=== PATIENT | female | born 1970 | race Caucasian/White ===

== ENCOUNTER 2023-06-13 14:59 | Outpatient (OUT) | payer BC, SELFPAY ==
--- NOTE | 2023-06-13 15:01 | MM_ITS ---
Patient: MARIBEL FLORES Exam Date: 06/13/2023 : 1970 Gender:F Ordering : MARIANA Crystal Rosas [facility] Admission #: [id number] Family : Order #: [id number] CLICK HERE TO VIEW EXAM RADIOLOGY REPORT PROCEDURE: MM TOMOSYNTHESIS SCREENING BI COMPARISON: MG MAMM SCREEN 3D AZRA CAD, 03/30/2021. MG MAMM SCREEN AZRA W CAD, 07/29/2019. INDICATIONS: Screening mammogram Z12.31 Calculator Name NCI Breast Cancer Risk Assessment Tool 5 Year Breast Cancer Risk 0.90% Lifetime Breast Cancer Risk 7.90% Personal Breast Cancer No Personal Ovarian Cancer No Treatments None Family Cancers Grandmother-paternal with uterine cancer at age ~82; Aunt-paternal with brain cancer at age ~30. LOCATION: [facility] BREAST COMPOSITION: Heterogeneously dense,which may obscure small masses. FINDINGS: DIAGNOSTIC CATEGORY 1--NEGATIVE. NO CHANGE FROM COMPARISON ASSESSMENT. Scattered benign-appearing calcifications are present. RIGHT BREAST: No significant suspicious finding. LEFT BREAST: No significant suspicious finding. RECOMMENDATIONS: ROUTINE MAMMOGRAM AND CLINICAL EVALUATION IN 12 MONTHS. PLEASE NOTE: A NORMAL MAMMOGRAM DOES NOT EXCLUDE THE POSSIBILITY OF BREAST CANCER. A CLINICALLY SUSPICIOUS PALPABLE LUMP SHOULD BE BIOPSIED. Dictated by: Adam Lux MD on 06/14/2023 at 09:28 Approved by: Adam Lux MD on 06/14/2023 at 09:29
== END 2023-06-13 15:00 | disposition home or self-care (01) ==
LOC: MAMMO 14:59
PROVIDERS: PCP Nurse Practitioner; Visit Provider Nurse Practitioner
DX: Z00.00 Encounter for general adult medical examination without abnormal findings (principal); Z12.31 Encounter for screening mammogram for malignant neoplasm of breast; Z80.8 Family history of malignant neoplasm of other organs or systems
CPT/HCPCS: 36415; 77063; 77067; 80053; 80061; 83036; 84443; 85025

== ENCOUNTER 2023-06-13 15:28 | Outpatient (OUT) | payer BC, SELFPAY ==
[2023-06-13 15:55] LABS: Basophils Percent Auto 0.4 % (0.2-2.0); Eosinophils Absolute Auto 0.1 10^3/uL (0.0-0.7); Eosinophils Percent Auto 2.5 % (0.9-7.0); Hematocrit 46.4 % (36.0-48.0); Hemoglobin 15.8 g/dL (12.0-16.0); Immature Granulocytes Abs Auto 0.01 10^3/uL (0.00-0.03); Immature Granulocytes Pct Auto 0.2 % (0.0-0.5); Lymphocytes Absolute Auto 1.6 10^3/uL (1.2-3.8); Lymphocytes Percent Auto 30.8 % (20.5-60.0); Mean Corpuscular HGB Conc 34.1 g/dL (29.9-35.2); Mean Corpuscular Hemoglobin 30.2 pg (26.7-34.0); Mean Corpuscular Volume 88.7 fL (81.0-99.0); Mean Platelet Volume 9.5 fL (9.5-13.5); Monocytes Absolute Auto 0.4 10^3/uL (0.3-0.8); Monocytes Percent Auto 8.1 % (1.7-12.0); Platelet Count 275 10^3/uL (150-450); Red Blood Count 5.23 10^6/uL (4.20-5.40); Red Cell Distribution Width 12.8 % (11.0-15.0); White Blood Count 5.2 10^3/uL (4.0-11.0)
[2023-06-13 16:22] LABS: Estimated Average Glucose 97 mg/dL
[2023-06-13 16:39] LABS: Alanine Aminotransferase 14 U/L (14-59); Albumin Globulin Ratio 1.3; Albumin Level 4.4 g/dL (3.4-5.0); Alkaline Phosphatase 71 U/L (46-116); Anion Gap 13.3; Aspartate Amino Transferase 10 U/L (15-37); BUN Creatinine Ratio 8.3; Bilirubin Total 0.8 mg/dL (0.2-1.0); Calcium 8.8 mg/dL (8.5-10.1); Carbon Dioxide 23.6 mmol/L (21.0-32.0); Chloride 105 mmol/L (98-107); Chol HDL Ratio 3.6; Cholesterol 207 mg/dL (<=200); Estimated GFR (African America >60 (>=60); Estimated GFR (Non-African Ame >60 (>=60); Globulin 3.4 g/dL; Glucose 105 mg/dL (74-106); HDL Cholesterol 57 mg/dL (40-60); Potassium 3.9 mmol/L (3.5-5.1); Sodium 138 mmol/L (136-145); Thyroid Stimulating Hormone 3.162 uIU/mL (0.358-3.740); Total Protein 7.8 g/dL (6.4-8.2); Triglycerides 63 mg/dL (<=150); VLDL CHOLESTEROL 12.6 mg/dL
== END 2023-06-13 15:29 | disposition home or self-care (01) ==
PROVIDERS: PCP Nurse Practitioner; Visit Provider Nurse Practitioner
DX: Z00.00 Encounter for general adult medical examination without abnormal findings (principal)
CPT/HCPCS: 36415; 80053; 80061; 83036; 84443; 85025

== ENCOUNTER 2023-08-08 07:46 | Outpatient (OUT) | payer BC, SELFPAY ==
[2023-08-08] MEDS: VARICELLA-ZOSTER GE VAC,2 OF 2 0.5 ML VIAL IM (15:40)
== END 2023-08-08 07:47 | disposition home or self-care (01) ==
LOC: VACCLI 07:46
PROVIDERS: PCP Nurse Practitioner; Visit Provider Nurse Practitioner
DX: Z23 Encounter for immunization (principal)
CPT/HCPCS: 90471; 90750

== ENCOUNTER 2023-12-26 15:45 | Outpatient (OUT) | payer BC, SELFPAY ==
--- NOTE | 2023-12-26 16:14 | XR_ITS ---
The [address] [address] Patient Name: MARIBEL FLORES MRN: [id number] date: 1970 Sex: F Assigned Patient Location: LAB Current Patient Location: Accession/Order Number: [id number] Exam Date: 12/26/2023 16:30 Report Date: 12/27/2023 06:42 At the request of: JORDON PÉREZ Procedure: XR foot RT min 3V PROCEDURE: XR foot RT min 3V HISTORY: pain and swelling of toe of right foot M79.674, M79.89 ; gout? COMPARISON: None. FINDINGS: BONES:No fracture, acute abnormality, or significant arthropathy. Small calcaneal plantar spur. SOFT TISSUES:No visible soft tissue swelling. EFFUSION:None visible. OTHER: Negative. XR/XR foot RT min 3V IMPRESSION: 1. No significant degenerative joint disease with specific attention to the first metatarsophalangeal joint. No evidence of early arthritic changes of gout. Electronically authenticated by: MANJIT ROJO Date: 12/27/2023 06:42
[2023-12-26 16:29] LABS: Uric Acid 2.7 mg/dL (2.6-6.0)
[2023-12-26 16:30] LABS: C Reactive Protein <0.50 mg/dL (<=0.50)
[2023-12-26 17:02] LABS: Erythrocyte Sedimentation Rate 30 mm/hr (<=30)
[2023-12-28 06:08] LABS: Antistreptolysin O Ab 75.9 IU/mL (0.0-200.0)
[2023-12-31 11:13] LABS: Antinuclear Antibodies, IFA Positive (.)
== END 2023-12-26 15:46 | disposition home or self-care (01) ==
LOC: LAB 15:50
PROVIDERS: PCP Nurse Practitioner; Visit Provider Nurse Practitioner
DX: M79.674 Pain in right toe(s) (principal); M79.89 Other specified soft tissue disorders
CPT/HCPCS: 36415; 73630; 84550; 85652; 86038; 86060; 86140; G0145

== ENCOUNTER 2023-12-26 15:53 | Outpatient (OUT) | payer BC, SELFPAY ==
[2023-12-26 16:28] LABS: Basophils Percent Auto 0.5 % (0.2-2.0); Eosinophils Absolute Auto 0.2 10^3/uL (0.0-0.7); Eosinophils Percent Auto 3.4 % (0.9-7.0); Hematocrit 43.8 % (36.0-48.0); Hemoglobin 14.2 g/dL (12.0-16.0); Immature Granulocytes Abs Auto 0.01 10^3/uL (0.00-0.03); Immature Granulocytes Pct Auto 0.2 % (0.0-0.5); Lymphocytes Absolute Auto 1.7 10^3/uL (1.2-3.8); Lymphocytes Percent Auto 30.1 % (20.5-60.0); Mean Corpuscular HGB Conc 32.4 g/dL (29.9-35.2); Mean Corpuscular Hemoglobin 29.8 pg (26.7-34.0); Mean Platelet Volume 9.9 fL (9.5-13.5); Monocytes Absolute Auto 0.4 10^3/uL (0.3-0.8); Monocytes Percent Auto 7.2 % (1.7-12.0); Neutrophils Absolute Auto 3.3 10^3/uL (1.4-6.5); Neutrophils Percent Auto 58.6 % (43.0-75.0); Platelet Count 287 10^3/uL (150-450); Red Blood Count 4.76 10^6/uL (4.20-5.40); Red Cell Distribution Width 13.5 % (11.0-15.0); White Blood Count 5.6 10^3/uL (4.0-11.0)
[2023-12-26 16:30] LABS: Estimated Average Glucose 100 mg/dL; Glycohemoglobin A1C 5.1 % (4.5-6.2)
[2023-12-26 16:41] LABS: HCG Quantitative <1 mIU/mL
[2023-12-28 04:07] LABS: Prolactin 16.8 ng/mL (3.6-25.2)
== END 2023-12-26 15:54 | disposition home or self-care (01) ==
LOC: LAB 15:55
PROVIDERS: PCP Nurse Practitioner; Visit Provider Physician Assistant
DX: M79.674 Pain in right toe(s) (principal); M79.89 Other specified soft tissue disorders; N91.2 Amenorrhea, unspecified; Z01.419 Encounter for gynecological examination (general) (routine) without abnormal findings
CPT/HCPCS: 36415; 73630; 83036; 84146; 84443; 84550; 84702; 85025; 85652; 86038; 86060; 86140; 87624; G0145

== ENCOUNTER 2023-12-26 21:35 | Outpatient (REF) | payer BC, SELFPAY | END 2023-12-26 21:36 | disposition home or self-care (01) | LOC: LAB 21:35 | PROVIDERS: PCP Nurse Practitioner; Visit Provider Physician Assistant | DX: Z01.419 Encounter for gynecological examination (general) (routine) without abnormal findings (principal) | CPT/HCPCS: 87624; G0145 ==

== ENCOUNTER 2024-01-30 14:37 | Outpatient (OUT) | payer BC, SELFPAY ==
--- NOTE | 2024-01-30 | XR_ITS ---
The [address] [address] Patient Name: MARIBEL FLORES MRN: [id number] date: 1970 Sex: F Assigned Patient Location: LAB Current Patient Location: Accession/Order Number: [id number] Exam Date: 01/30/2024 15:35 Report Date: 01/31/2024 07:51 At the request of: HAMLET RICH Procedure: XR shoulder RT min 2V PROCEDURE: XR shoulder RT min 2V HISTORY: Shoulder Pain COMPARISON: None. FINDINGS: BONES:No fracture, acute abnormality, or significant arthropathy. SOFT TISSUES:No visible soft tissue swelling. EFFUSION:None visible. OTHER: Negative. XR/XR shoulder RT min 2V IMPRESSION: 1. No acute bone abnormality or significant degenerative changes. Electronically authenticated by: MANJIT ROJO Date: 01/31/2024 07:51
--- NOTE | 2024-01-30 15:31 | XR_ITS ---
The [address] [address] Patient Name: MARIBEL FLORES MRN: [id number] date: 1970 Sex: F Assigned Patient Location: LAB Current Patient Location: LAB Accession/Order Number: [id number] Exam Date: 01/30/2024 15:35 Report Date: 01/31/2024 07:57 At the request of: HAMLET RICH Procedure: XR hand AZRA min 3v EXAMINATION: XR hand AZRA min 3v HISTORY: Hand Pain COMPARISON: No relevant comparison available. FINDINGS: RIGHT FINDINGS: BONES: Minimal degenerative joint disease; no bone erosion, cortical destruction, or periosteal reaction. No fracture, dislocation, or bone lesion. SOFT TISSUES: No visible soft tissue swelling. OTHER: Negative. LEFT FINDINGS: BONES: Minimal degenerative joint disease; no bone erosion, cortical destruction, periosteal reaction. No fracture, dislocation, or bone lesion. SOFT TISSUES: No visible soft tissue swelling. OTHER: Negative. XR/XR hand AZRA min 3v IMPRESSION: RIGHT CONCLUSION: No findings to suggest rheumatoid arthritis. Minimal degenerative changes. LEFT CONCLUSION: No findings to suggest rheumatoid arthritis. Minimal degenerative changes. Electronically authenticated by: MANJIT ROJO Date: 01/31/2024 07:57
[2024-01-30 15:37] LABS: Bilirubin Urine NEGATIVE (NEGATIVE); Blood Urine NEGATIVE (NEGATIVE); Clarity Urine CLEAR (CLEAR); Color Urine YELLOW (YELLOW); Glucose Urine UA NEGATIVE (NEGATIVE); Ketones Urine NEGATIVE (NEGATIVE); Leukocyte Esterase Urine NEGATIVE (NEGATIVE); Nitrite Urine NEGATIVE (NEGATIVE); Protein Urine NEGATIVE (NEG/TRACE); Specific Gravity Urine 1.015 (1.005-1.025); Urobilinogen Urine 0.2 EU/dL (0.2-1.0); pH Urine 7.5 (5.0-9.0)
[2024-01-30 15:56] LABS: Basophils Percent Auto 0.4 % (0.2-2.0); Eosinophils Absolute Auto 0.1 10^3/uL (0.0-0.7); Eosinophils Percent Auto 2.2 % (0.9-7.0); Hematocrit 44.5 % (36.0-48.0); Hemoglobin 14.5 g/dL (12.0-16.0); Immature Granulocytes Abs Auto 0.01 10^3/uL (0.00-0.03); Immature Granulocytes Pct Auto 0.2 % (0.0-0.5); Lymphocytes Absolute Auto 1.8 10^3/uL (1.2-3.8); Lymphocytes Percent Auto 33.3 % (20.5-60.0); Mean Corpuscular HGB Conc 32.6 g/dL (29.9-35.2); Mean Corpuscular Hemoglobin 29.7 pg (26.7-34.0); Mean Corpuscular Volume 91.2 fL (81.0-99.0); Mean Platelet Volume 9.9 fL (9.5-13.5); Monocytes Absolute Auto 0.3 10^3/uL (0.3-0.8); Monocytes Percent Auto 5.8 % (1.7-12.0); Neutrophils Absolute Auto 3.2 10^3/uL (1.4-6.5); Neutrophils Percent Auto 58.1 % (43.0-75.0); Platelet Count 262 10^3/uL (150-450); Red Blood Count 4.88 10^6/uL (4.20-5.40); Red Cell Distribution Width 13.2 % (11.0-15.0); White Blood Count 5.5 10^3/uL (4.0-11.0)
[2024-01-30 16:01] LABS: Erythrocyte Sedimentation Rate 25 mm/hr (<=30)
[2024-01-30 16:04] LABS: Amorphous Sediment Urine RARE; Bacteria Urine NONE SEEN #/HPF (NONE SEEN); Cast Seen? NONE SEEN #/LPF (NONE SEEN); Crystals Seen? Seen #/HPF (None Seen); Mucus Urine NONE SEEN (NONE SEEN); RBC Urine 0-2 #/HPF (0-2); Squamous Epithelial Cell Urine FEW #/LPF (NONE/RARE); WBC Urine 0-2 #/HPF (NONE SEEN)
[2024-01-30 16:24] LABS: Estimated GFR (African America >60 (>=60); Estimated GFR (Non-African Ame >60 (>=60)
[2024-01-30 16:29] LABS: C Reactive Protein <0.50 mg/dL (<=0.50)
[2024-01-31 05:08] LABS: Complement C3, Serum 131 mg/dL (82-167); Complement C4, Serum 28 mg/dL (12-38)
[2024-01-31 06:09] LABS: Rheumatoid Factor (RF) <10.0 IU/mL (<14.0)
[2024-01-31 12:11] LABS: Anti-CCP Ab, IgG/IgA 4 units (0-19)
[2024-01-31 14:10] LABS: Anti-dsDNA Antibodies 1 IU/mL (0-9); Antiscleroderma-70 Antibodies <0.2 AI (0.0-0.9); Complement, Total (CH50) >60 U/mL (>41); PTH, Intact 23 pg/mL (15-65); Sjogren's Anti-SS-A <0.2 AI (0.0-0.9); Sjogren's Anti-SS-B <0.2 AI (0.0-0.9)
[2024-02-03 09:08] LABS: Antinuclear Antibodies, IFA Positive (.)
== END 2024-01-30 14:38 | disposition home or self-care (01) ==
LOC: LAB 14:40
PROVIDERS: PCP Nurse Practitioner; Visit Provider Internal Medicine Rheumatology
DX: M25.50 Pain in unspecified joint (principal); R76.0 Raised antibody titer; M89.9 Disorder of bone, unspecified
CPT/HCPCS: 36415; 73030; 73130; 81001; 82306; 82565; 83970; 85025; 85652; 86038; 86140; 86160; 86162; 86200; 86225; 86235; 86431

== ENCOUNTER 2024-02-28 12:54 | Outpatient (OUT) | payer BC, SELFPAY ==
--- NOTE | 2024-02-28 12:58 | MR_ITS ---
[address] [address] Patient Name: MARIBEL FLORES MRN: [id number] date: 1970 Sex: F Assigned Patient Location: MRI Current Patient Location: Accession/Order Number: [id number] Exam Date: 02/28/2024 13:35 Report Date: 03/01/2024 04:35 At the request of: HAMLET RICH Procedure: MR shoulder RT wo con EXAMINATION: MR shoulder RT wo con HISTORY: Right Shoulder Pain M25.511 COMPARISON: No relevant comparison available. TECHNIQUE: A variety of imaging planes and parameters were utilized for visualization of suspected pathology. Imaging was performed without or with contrast as indicated by examination type. FINDINGS: ROTATOR CUFF REGION CUFF TENDONS: Complete tear of the supraspinatus tendon with approximately 3 cm retraction. CUFF MUSCLES: Normal appearing muscles. DELTOID: Normal. No significant atrophy or tear. LONG BICEPS TENDON: Normal. No abnormal signal, attrition, or tear. LABRUM/BICEPS ANCHOR SUPERIOR: No visible labral tear or biceps anchor pathology. ANTERIOR/INFERIOR: Anterior labrum is suspicious for small tear. POSTERIOR: No posterior labrum abnormality. CAPSULE Normal. No visible capsular laxity or thickening. AC JOINT REGION AC JOINT: Moderate osteoarthropathy with moderate narrowing of the underlying coracoacromial arch. AC LIGAMENTS: Normal acromioclavicular ligament. CC LIGAMENTS: Normal coracoclavicular ligaments. ACROMION: Mild lateral downsloping. SUBACROMIAL BURSA: Moderate effusion. HYALINE CARTILAGE: Normal. No visible cartilage narrowing or focal defect. OTHER BONES: Normal proximal humerus, glenoid, and coracoid. OTHER OBSERVATIONS: Negative. No other significant findings or glenohumeral effusion. MR/MR shoulder RT wo con IMPRESSION: 1. Complete tear and approximately 3 cm retraction of supraspinatus tendon. 2. Moderate degenerative changes acromioclavicular joint and mild lateral downsloping of acromion process. 3. Anterior labrum is suspicious for a small tear. Electronically authenticated by: MANJIT ROJO Date: 03/01/2024 04:35
== END 2024-02-28 12:55 | disposition home or self-care (01) ==
LOC: MRI 12:54
PROVIDERS: PCP Nurse Practitioner; Visit Provider Internal Medicine Rheumatology
DX: M25.511 Pain in right shoulder (principal); M75.121 Complete rotator cuff tear or rupture of right shoulder, not specified as traumatic
CPT/HCPCS: 73221

== ENCOUNTER 2024-03-11 14:28 | Outpatient (OUT) | payer BC, SELFPAY ==
--- NOTE | 2024-03-11 14:37 | ECG_ITS ---
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
--- OUTSIDE RECORDS SUMMARY | 2024-03-11 14:42 | XMS_ITS | CCD ---
Author Organization [facility] Care Team Providers Care Assistant Sales Manager Name Role Phone AICHHOLZ, PIPELINE SYSTEMS OPERATOR CRYSTAL Admitting Unavailable AICHHOLZ, PIPELINE SYSTEMS OPERATOR CRYSTAL Attending Unavailable AICHHOLZ, PIPELINE SYSTEMS OPERATOR CRYSTAL Consulting Unavailable AICHHOLZ, PIPELINE SYSTEMS OPERATOR CRYSTAL Primary Care Unavailable AICHHOLZ, PIPELINE SYSTEMS OPERATOR CRYSTAL Primary Care Unavailable AICHHOLZ, PIPELINE SYSTEMS OPERATOR CRYSTAL Admitting Unavailable AICHHOLZ, PIPELINE SYSTEMS OPERATOR CRYSTAL Attending Unavailable AICHHOLZ, PIPELINE SYSTEMS OPERATOR CRYSTAL Consulting Unavailable NILL, DR GE Attending Unavailable NILL, DR GE Consulting Unavailable NILL, DR GE Admitting Unavailable AICHHOLZ, PIPELINE SYSTEMS OPERATOR CRYSTAL Primary Care Unavailable RAZIA MENDIETA Consulting Unavailable NILL, DR GE Admitting Unavailable NILL, DR GE Attending Unavailable AICHHOLZ, PIPELINE SYSTEMS OPERATOR CRYSTAL Primary Care Unavailable LEONARDO DURÁN Attending Unavailable LEONARDO DURÁN Consulting Unavailable LEONARDO DURÁN Admitting Unavailable AICHHOLZ, PIPELINE SYSTEMS OPERATOR CRYSTAL Primary Care Unavailable Everette Mullen MD Primary Care Provider [place] COURT [place] JUDGE, Crystal Unavailable AICHHOLZ, CRYSTAL Attending Unavailable AICHHOLZ, CRYSTAL Attending Unavailable EKATERINA DURÁN Attending Unavailable AICHHOLZ, CRYSTAL Attending Unavailable Allergies Allergy Classification Reported Allergen(s) Allergy Type Date of Onset Reaction(s) Facility (2 sources) Adhesive agent Drug allergy (disorder) 06-08-2013 [facility] (1 source) Glycerin Drug Allergy 06-14-2013 [facility] (1 source) Leucine Drug Allergy [facility] (1 source) Aquasol A Drug allergy (disorder) [facility] Medications Current Medications Medication Drug Class(es) Dates Sig (Normalized) Sig (Original) aspirin 81 mg delayed release oral tablet (5 sources) Platelet Aggregation Inhibitor, Nonsteroidal Anti-inflammatory Drug take 1 tablet by mouth in the morning aspirin 81 MG EC tablet Take 81 mg by mouth in the morning. 0 Active cephalexin 500 mg oral capsule (4 sources) Cephalosporin Antibacterial Start: 12-23-19 End: 01-02-20 take 1 capsule by mouth in the morning cephalexin (Keflex) 500 MG capsule Indications: Cellulitis of toe of right foot Take 1 capsule (500 mg) by mouth in the morning and 1 capsule (500 mg) before bedtime. Do all this for 10 days. 20 capsule 0 12/23/2023 01/02/2024 Active cholecalciferol 0.025 mg oral capsule (5 sources) Vitamin D take 1 capsule by mouth in the morning cholecalciferol (Vitamin D-3) 25 MCG (1000 UT) capsule Take 1,000 Units by mouth in the morning. 0 Active DULoxetine 30 mg delayed release oral capsule (5 sources) Serotonin and Norepinephrine Reuptake Inhibitor Start: 11-27-19 End: 02-25-20 take 1 capsule by mouth in the morning DULoxetine (Cymbalta) [address] capsule Indications: Chronic migraine without aura without status migrainosus, not intractable (CMS/HCC) Take 1 capsule (30 mg) by mouth in the morning. Do not crush or chew.. 90 capsule 1 11/27/2023 02/25/2024 Active 1 ml galcanezumab-gnlm 120 mg/ml auto-injector (5 sources) Start: 11-27-19 End: 02-25-20 galcanezumab (Emgality) 120 MG/ML auto-injector Indications: Migraine Inject 1 Syringe (120 mg) under the skin every 30 (thirty) days 3 mL 1 11/27/2023 02/25/2024 Active Magnesium (5 sources) take 2 tablets by mouth once daily magnesium 200 MG tablet Take 400 mg by mouth 1 (one) time each day 0 Active 1 ml medroxyPROGESTERone acetate 150 mg/ml injection (5 sources) Progestin Start: 04-02-20 End: 03-27-20 medroxyPROGESTERone (Depo-Provera) injection 150 mg meloxicam 15 mg oral tablet (5 sources) Nonsteroidal Anti-inflammatory Drug take 1 tablet by mouth in the morning meloxicam (Mobic) 15 MG tablet Take 15 mg by mouth in the morning. 0 Active SUMAtriptan 100 mg oral tablet (5 sources) Serotonin-1b and Serotonin-1d Receptor Agonist Start: 12-03-19 End: 03-02-20 24 SUMAtriptan (Imitrex) 100 MG tablet Indications: Chronic migraine without aura without status migrainosus, not intractable (CMS/HCC) Take 1 tablet (100 mg) by mouth 1 (one) time if needed for migraine Take 1 pill at the onset of migraine BRYAN, may repeat in 2 hours if needed. No more than 2 pills in 24 hours, no more than twice a week 27 tablet 1 12/03/2023 03/02/2024 Active Problems Active Problems Problem Classification Problem Date Documented Date Episodic/Chronic Digestive congenital anomalies (1 source) Other specified congenital malformations of intestine; 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: [OTH SPEC CONGEN MALFORM INTESTINE] Onset: 11-07-2021 Chronic Headache; including migraine (5 sources) Migraine without aura, not refractory ; 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: [Chronic migraine without aura, not intractable, without status migrainosus] Onset: 10-21-2023 10-21-2023 Chronic Menopausal disorders (2 sources) Disorder associated with menstruation AND/OR menopause; 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: [Menopausal and female climacteric states] 12-26-2023 Chronic Menstrual disorders (2 sources) Amenorrhea; 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: [Amenorrhea, unspecified] 12-26-2023 Chronic Osteoporosis (2 sources) Senile osteoporosis; 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: [Age-related osteoporosis without current pathological fracture] 12-26-2023 Chronic Other connective tissue disease (4 sources) Pain in toe; 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: [Pain in right toe(s)] Onset: 12-23-2023 12-23-2023 Episodic Other nutritional; endocrine; and metabolic disorders (5 sources) Body mass index 30+ - obesity; 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: [Body mass index (BMI) 33.0-33.9, adult] Onset: 11-21-2023 11-21-2023 Chronic Other screening for suspected conditions (not mental disorders or infectious disease) (6 sources) Encounter for screening for malignant neoplasm of colon; 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: [Patient encounter status] Onset: 11-01-2021 Episodic Other skin disorders (5 sources) Acne; 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: [Acne, unspecified] Onset: 10-21-2023 10-21-2023 Episodic Skin and subcutaneous tissue infections (4 sources) Cellulitis of toe of right foot; 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: [Cellulitis of right toe] Onset: 12-23-2023 12-23-2023 Episodic Unclassified (1 source) PERSONAL HISTORY OF COVID-19; 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: [PERSONAL HISTORY OF COVID-19] Onset: 11-07-2021 Unclassified (2 sources) CONTACT W/AND (SUSP) EXPOS COVID-19; 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: [CONTACT W/AND (SUSP) EXPOS COVID-19] Onset: 09-26-2021 Viral infection (1 source) COVID-19; 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: [COVID-19] Onset: 09-26-2021 Past or Other Problems Problem Classification Problem Date Documented Da te Episodic/Chronic Disorders of lipid metabolism (9 sources) Hyperlipidemia, unspecified; 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: [Hyperlipidemia] Onset: 09-14-2022 Resolved: 12-23-2023 Chronic Other aftercare (1 source) 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; 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: [MOLDER BENCH CURRENT USE OF ASPIRIN] Onset: 11-07-2021 Episodic Unclassified (1 source) CONTACT W/AND (SUSP) EXPOS COVID-19; 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: [CONTACT W/AND (SUSP) EXPOS COVID-19] Onset: 09-21-2021 Results Test Name Value Interpretation Reference Range Facility ALL C REACTIVE PROTEINon CRP [Mass/Vol] mg/L NINF - 0.50 mg/dL [facility] ALL URIC ACIDon 12-26-2023 Urate [Mass/Vol] 2.7 mg/dL 2.6 - 6.0 mg/dL [facility] No Panel Informationon 12-26 [facility] LIPID PROFILEon 09-14-2022 CHOL-HDL RATIO NORM SEE BELOW Normal [facility] Comment on above: Result Comment: 3.3 - 4.4 LOW RISK 4.4 - 7.1 AVERAGE RISK 7.1 - 11.0 MODERATE RISK >11.0 HIGH RISK Performed By: #### L IPID #### [facility] [address] [address] [address] Cami Quispe Cholesterol [Mass/Vol] 229 mg/dL Critically high <=200 [facility] Comment on above: Performed By: #### L IPID #### [facility] [address] [address] [address] Cami Quispe Cholesterol in HDL [Mass/Vol] 60 mg/dL Normal 40-60 [facility] Comment on above: Performed By: #### L IPID #### [facility] [address] [address] [address] Cami Quispe Cholesterol in LDL [Mass/Vol] 160.2 mg/dL Normal [facility] Comment on above: Performed By: #### L IPID #### [facility] [address] [address] [address] Cami Quispe Cholesterol.total/Ch olesterol in HDL [Mass ratio] 3.8 {ratio} Normal [facility] Comment on above: Performed By: #### L IPID #### [facility] [address] [place] [address] Dr. Cami Quispe HDL NORMAL > or = 60 mg/dl - LOW CARDIOVASCULAR RISK <40 mg/dl - HIGH CARDIOVASCULAR RISK Normal [facility] Comment on above: Performed By: #### L IPID #### [facility] [address] [address] [address] Cami Quispe LDL CALC NORMAL SEE BELOW Normal [facility] Comment on above: Result Comment: <100 mg/dl OPTIMAL 100 - 129 mg/dl NEAR OR ABOVE OPTIMAL 130 - 159 mg/dl BORDERLINE HIGH 160 - 189 mg/dl HIGH >190 mg/dl VERY HIGH Performed By: #### L IPID #### [facility] [address] [address] [address] Cami Quispe Triglyceride [Mass/Vol] 44 mg/dL Normal <=150 [facility] Comment on above: Performed By: #### L IPID #### [facility] [address] [place] [address] Dr. Cami Quispe VLDL CALC 8.8 mg/dL Normal [facility] Comment on above: Performed By: #### L IPID #### [facility] [address] [address] [address] Cami Quispe CBC AUTO DIFFon 04-05-2022 BASO # 0.0 103/ul Normal 0.0-0.1 [facility] Comment on above: Performed By: #### C BC #### [facility] [address] [place] [address] Dr. Cami Quispe Basophils/100 WBC (Bld) 0.6 % Normal 0.2-2.0 [facility] Comment on above: Performed By: #### C BC #### [facility] [address] [place] [address] Dr. Cami Quispe EO # 0.2 103/ul Normal 0.0-0.7 [facility] Comment on above: Performed By: #### C BC #### [facility] [address] [place] [address] Dr. Cami Quispe Eosinophils/100 WBC (Bld) 3.2 % Normal 0.9-7.0 [facility] Comment on above: Performed By: #### C BC #### [facility] [address] [place] [address] Dr. Cami Quispe Erythrocyte distribution width (RBC) [Ratio] 13.4 % Normal 11.0-15.0 [facility] Comment on above: Performed By: #### C BC #### [facility] [address] [place] [address] Dr. Cami Quispe Hematocrit (Bld) [Volume fraction] 47.9 % Normal 36.0-48.0 [facility] Comment on above: Performed By: #### C BC #### [facility] [address] [place] [address] Dr. Cami Quispe Hemoglobin (Bld) [Mass/Vol] 15.8 g/dL Normal 12.0-16.0 [facility] Comment on above: Performed By: #### C BC #### [facility] [address] [place] [address] Dr. Cami Quispe IG # 0.01 10e3/ul Normal 0.00-0.03 [facility] Comment on above: Performed By: #### C BC #### [facility] [address] [place] [address] Dr. Cami Quispe IG % 0.2 % Normal 0.0-0.5 [facility] Comment on above: Performed By: #### C BC #### [facility] [address] [place] [address] Dr. Cami Quispe LYMPH # 1.8 103/ul Normal 1.2-3.8 [facility] Comment on above: Performed By: #### C BC #### [facility] [address] [place] [address] Dr. Cami Quispe Lymphocytes/100 WBC (Bld) 29.6 % Normal 20.5-60.0 [facility] Comment on above: Performed By: #### C BC #### [facility] [address] [place] [address] Dr. Cami Quispe MANUAL DIFF REQ NO Normal [facility] Comment on above: Performed By: #### C BC #### [facility] [address] [place] [address] Dr. Cami Quispe MCH (RBC) [Entitic mass] 30.8 pg Normal 26.7-34.0 [facility] Comment on above: Performed By: #### C BC #### [facility] [address] [place] [address] Dr. Cami Quispe MCHC (RBC) [Mass/Vol] 33.0 g/dL Normal 29.9-35.2 [facility] Comment on above: Performed By: #### C BC #### [facility] [address] [place] [address] Dr. Cami Quispe MCV (RBC) [Entitic vol] 93.4 fL Normal 81.0-99.0 [facility] Comment on above: Performed By: #### C BC #### [facility] [address] [place] [address] Dr. Cami Quispe MONO # 0.5 103/ul Normal 0.3-0.8 [facility] Comment on above: Performed By: #### C BC #### [facility] [address] [place] [address] Dr. Cami Quispe Monocytes/100 WBC (Bld) 7.4 % Normal 1.7-12.0 [facility] Comment on above: Performed By: #### C BC #### [facility] [address] [address] [address] Cami Quispe NEUT # 3.7 103/ul Normal 1.4-6.5 [facility] Comment on above: Performed By: #### C BC #### [facility] [address] [address] [address] Cami Quispe Neutrophils/100 WBC (Bld) 59.0 % Normal 43.0-75.0 [facility] Comment on above: Performed By: #### C BC #### [facility] [address] [address] [address] Cami Quispe Platelet mean volume (Bld) [Entitic vol] 9.6 fL Normal 9.5-13.5 [facility] Comment on above: Performed By: #### C BC #### [facility] [address] [place] [address] Dr. Cami Quispe PLT 294 103/ul Normal 150-450 [facility] Comment on above: Performed By: #### C BC #### [facility] [address] [address] [address] Cami Quispe RBC 5.13 106/ul Normal 4.20-5.40 [facility] Comment on above: Performed By: #### C BC #### [facility] [address] [place] [address] Dr. Cami Quispe WBC 6.2 103/ul Normal 4.0-11.0 [facility] Comment on above: Performed By: #### C BC #### [facility] [address] [place] [address] Dr. Cami Quispe GLYCOHEMOGLOBIN A1Con 2021 ADA RECOMMENDATION SEE BELOW Normal [facility] Comment on above: Result Comment: ADA RECOMMENDED LIMIT 4.0 - 6.0 ADA THERAPEUTIC TARGET < 7.0 ACTION SUGGESTED > 7.0 Performed By: #### A 1C #### [facility] [address] [place] [address] Dr. Cami Quispe Glucose [Mass/Vol] 91 mg/dL Normal [facility] Comment on above: Performed By: #### A 1C #### [facility] [address] [address] [address] Cami Quispe HbA1c (Bld) [Mass fraction] 4.8 % Normal 4.5-6.2 [facility] Comment on above: Performed By: #### A 1C #### [facility] [address] [address] [address] Cami Quispe LIPID PROFILEon 04-05-2022 CHOL-HDL RATIO NORM SEE BELOW Normal [facility] Comment on above: Result Comment: 3.3 - 4.4 LOW RISK 4.4 - 7.1 AVERAGE RISK 7.1 - 11.0 MODERATE RISK >11.0 HIGH RISK Performed By: #### L IPID, CMP, TSH #### [facility] [address] [address] [address] Cami Quispe Cholesterol [Mass/Vol] 255 mg/dL Critically high <=200 [facility] Comment on above: Performed By: #### L IPID, CMP, TSH #### [facility] [address] [address] [address] Cami Quispe Cholesterol in HDL [Mass/Vol] 68 mg/dL Critically high 40-60 [facility] Comment on above: Performed By: #### L IPID, CMP, TSH #### [facility] [address] [address] [address] Cami Quispe Cholesterol in LDL [Mass/Vol] 176.8 mg/dL Normal [facility] Comment on above: Performed By: #### L IPID, CMP, TSH #### [facility] [address] [address] [address] Cami Quispe Cholesterol.total/Ch olesterol in HDL [Mass ratio] 3.8 {ratio} Normal [facility] Comment on above: Performed By: #### L IPID, CMP, TSH #### [facility] [address] [address] [address] Cami Quispe HDL NORMAL > or = 60 mg/dl - LOW CARDIOVASCULAR RISK <40 mg/dl - HIGH CARDIOVASCULAR RISK Normal [facility] Comment on above: Performed By: #### L IPID, CMP, TSH #### [facility] [address] [address] [address] Cami Quispe LDL CALC NORMAL SEE BELOW Normal [facility] Comment on above: Result Comment: <100 mg/dl OPTIMAL 100 - 129 mg/dl NEAR OR ABOVE OPTIMAL 130 - 159 mg/dl BORDERLINE HIGH 160 - 189 mg/dl HIGH >190 mg/dl VERY HIGH Performed By: #### L IPID, CMP, TSH #### [facility] [address] [address] [address] Cami Quispe Triglyceride [Mass/Vol] 51 mg/dL Normal <=150 [facility] Comment on above: Performed By: #### L IPID, CMP, TSH #### [facility] [address] [address] [address] Cami Quispe VLDL CALC 10.2 mg/dL Normal [facility] Comment on above: Performed By: #### L IPID, CMP, TSH #### [facility] [address] [address] [address] Cami Quispe PROF 14(COMP METB)on 022 Albumin [Mass/Vol] 4.3 g/dL Normal 3.4-5.0 [facility] Comment on above: Performed By: #### L IPID, CMP, TSH #### [facility] [address] [address] [address] Cami Quispe Albumin/Globulin [Mass ratio] 1.2 {ratio} Normal [facility] Comment on above: Performed By: #### L IPID, CMP, TSH #### [facility] [address] [address] [address] Cami Quispe ALP [Catalytic activity/Vol] 74 U/L Normal 46-116 [facility] Comment on above: Performed By: #### L IPID, CMP, TSH #### [facility] [address] [address] [address] Cami Quispe ALT [Catalytic activity/Vol] 28 U/L Normal 14-59 [facility] Comment on above: Performed By: #### L IPID, CMP, TSH #### [facility] [address] [address] [address] Cami Quispe Anion gap [Moles/Vol] 11.8 mmol/L Normal [facility] Comment on above: Performed By: #### L IPID, CMP, TSH #### [facility] [address] [address] [address] Cami Quispe AST [Catalytic activity/Vol] 16 U/L Normal 15-37 [facility] Comment on above: Performed By: #### L IPID, CMP, TSH #### [facility] [address] [address] [address] Cami Quispe Bilirubin [Mass/Vol] 1.0 mg/dL Normal 0.2-1.0 [facility] Comment on above: Performed By: #### L IPID, CMP, TSH #### [facility] [address] [address] [address] Cami Quispe Calcium [Mass/Vol] 9.2 mg/dL Normal 8.5-10.1 [facility] Comment on above: Performed By: #### L IPID, CMP, TSH #### [facility] [address] [address] [address] Cami Quispe Chloride [Moles/Vol] 102 mmol/L Normal 98-107 [facility] Comment on above: Performed By: #### L IPID, CMP, TSH #### [facility] [address] [address] [address] Cami Quispe CO2 [Moles/Vol] 26.4 mmol/L Normal 21.0-32.0 [facility] Comment on above: Performed By: #### L IPID, CMP, TSH #### [facility] [address] [address] [address] Cami Quispe Creatinine [Mass/Vol] 0.77 mg/dL Normal 0.55-1.02 [facility] Comment on above: Performed By: #### L IPID, CMP, TSH #### [facility] [address] [address] [address] Cami Quispe EGFR-AF TRISTANIAN >60 Normal >=60 [facility] Comment on above: Performed By: #### L IPID, CMP, TSH #### [facility] [address] [address] [address] Cami Quispe EGFR-NON AF TRISTANIAN >60 Normal >=60 [facility] Comment on above: Performed By: #### L IPID, CMP, TSH #### [facility] [address] [address] [address] Cami Quispe Globulin (S) [Mass/Vol] 3.7 g/dL Normal [facility] Comment on above: Performed By: #### L IPID, CMP, TSH #### [facility] [address] [address] [address] Cami Quispe Glucose [Mass/Vol] 92 mg/dL Normal 74-106 [facility] Comment on above: Performed By: #### L IPID, CMP, TSH #### [facility] [address] [place] [address] Dr. Cami Quispe Potassium [Moles/Vol] 4.2 mmol/L Normal 3.5-5.1 [facility] Comment on above: Performed By: #### L IPID, CMP, TSH #### [facility] [address] [place] [address] Dr. Cami Quispe Protein [Mass/Vol] 8.0 g/dL Normal 6.4-8.2 [facility] Comment on above: Performed By: #### L IPID, CMP, TSH #### [facility] [address] [address] [address] Cami Quispe Sodium [Moles/Vol] 136 mmol/L Normal 136-145 [facility] Comment on above: Performed By: #### L IPID, CMP, TSH #### [facility] [address] [place] [address] Dr. Cami Quispe Urea nitrogen [Mass/Vol] 14.0 mg/dL Normal 7.0-18.0 [facility] Comment on above: Performed By: #### L IPID, CMP, TSH #### [facility] [address] [place] [address] Dr. Cami Quispe Urea nitrogen/Creatinine [Mass ratio] 18.2 mg/mg Normal [facility] Comment on above: Performed By: #### L IPID, CMP, TSH #### [facility] [address] [address] [address] Cami Quispe TSHon 04-05-2022 TSH 2.255 uIU/mL Normal 0.358-3.740 [facility] Comment on above: Performed By: #### L IPID, CMP, TSH #### [facility] [address] [address] [address] Cami Quispe TSH RANGE SEE BELOW Normal [facility] Comment on above: Result Comment: <0.3 4 UIU/ml HYPERTHYROID 0.34-5.60 UIU/ml EUTHYROID >5.60 UIU/ml HYPOTHYROID Performed By: #### L IPID, CMP, TSH #### [facility] [address] [address] [address] Cami Quispe Outside Colonoscopyon 2020 Outside Colonoscopy [id number] Normal [facility] Reminderson 11-02-2021 Reminders -- From: Cindi Figueroa LPN To: GSN - Clinical; Sent: 11/02/2021 14:42:12 EST Show up: 10/02/2031 08:00:00 EST Subject: colonoscopy recall Due Date/Time: 11/01/2031 08:00:00 EST Reminder/Recall Patient is due for screening colonoscopy 11/01/2031. Normal [facility] PREG HCG QUALon 11-01-2021 , QUAL Negative Normal NEGATIVE [facility] Comment on above: Performed By: #### P REG #### [facility] [address] [place] [address] Dr. Cami Quispe [facility] SARS-CoV-2 (COVID-19) RNA LOAN+probe Ql (Unsp spec) Detected Critically abnormal NOT DETECTED [facility] Comment on above: Result Comment: This test is not yet approved or cleared by the [place] FDA. When there are no FDA-approved or cleared tests available, and other criteria are met, FDA can make tests available under an emergency access mechanism called an Emergency Use Authorization (EUA). The EUA for this test is supported by the Hospital Nursing Assistant of Health and Human Service's declaration that circumstances exist to justify the emergency use of in vitro diagnostics for the detection and/or diagnosis of the virus that causes COVID-19. This EUA will remain in effect for the duration of the COVID-19 declaration justifying emergency of IVDs, unless it is terminated or revoked by the FDA (after which the test may no longer be used). Performed By: #### C [facility] #### [facility] [id number] Cami Quispe Provider Letter [facility] Provider Letter [facility] September 19, 2021 CRYSTAL ROSAS, [address] [place] [address] Re: JOAQUINA GARCIA Date of : 1970 Thank you for your referral of Joaquina Garcia who was seen on consultation for screening colonoscopy. I have enclosed my consultation note for your review. I will be happy to follow Joaqiuna. Sincerely, Joo Gonzalez MD General Surgery [facility] Consent for Procedure/Surger yon 09-11-2021 Consent for Procedure/Surgery [id number]:127 Normal [facility] Physician Referralon 021 Physician Referral [id number]:127 Normal [facility] Vital Signs Date Time Vital Sign Value Performing Clinician Juliane thrasher 12-26-2023 15:20-0500 Body mass index (BMI) [Ratio] 33.15 kg/m2 Ekaterina PATTERSON Work Phone: [facility] 12-26-2023 15:20-0500 Body weight 98.88 kg Ekaterina PATTERSON Work Phone: [facility] 12-26-2023 15:20-0500 Diastolic blood pressure 74 mm[Hg] Ekaterina PATTERSON Work Phone: [facility] 12-26-2023 15:20-0500 Systolic blood pressure 122 mm[Hg] Ekaterina PATTERSON Work Phone: [facility] Encounters Encounter Date Encounter Type Care Provider Facility Start: 01-13-2024 End: 01-13-2024 ambulatory CRYSTAL AICHHOLZ Not Available Start: 12-26-2023 End: 12-26-2023 ambulatory EKATERINA DURÁN Not Available Start: 12-26-2023 End: 12-26-2023 Patient encounter procedure Ekaterina PATTERSON Work Phone: [facility] Work Phone: Start: 12-26-2023 End: 12-26-2023 Periodic preventive med est patient 40-64yrs Ekaterina PATTERSON Work Phone: [facility] Comment on above: Well woman exam with routine gynecological exam; Breast cancer screening by mammogram; Post menopausal syndrome; Age-related osteoporosis without current pathological fracture ([facility]); Amenorrhea Start: 12-26-2023 Clinisync Result Encounter Crystal Alison 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 Phone: [facility] External Department Unsolicited Start: 12-26-2023 Clinisync Result Encounter Crystal Scottyholz 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 Phone: [facility] External Department Unsolicited Start: 12-25-2023 Chart abstracting Ekaterina PATTERSON Work Phone: [facility] Start: 12-23-2023 Bamboo flowsheet Crystal Aichholz 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 Phone: [facility] Start: 12-23-2023 Bamboo flowsheet Crystal Aichholz 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 Phone: [facility] Start: 12-23-2023 End: 12-23-2023 ambulatory CRYSTAL AICHHOLZ Not Available Start: 11-21-2023 End: 11-21-2023 ambulatory CRYSTAL AICHHOLZ Not Available Start: 09-14-2022 End: 09-15-2022 ambulatory [place] Facility:[facility] Start: 04-12-2022 Encounter for genera l adult medical examination without abnormal findings MARIANA RUVALCABA YAKELINTequilaPHIL[place] [facility] Start: 04-05-2022 End: 04-06-2022 ambulatory [place]NA [place] Facility:[facility] Start: 04-05-2022 End: 04-06-2022 Encounter for general adult medical examination without abnormal findings [place]NA [place] Facility:[facility] Start: 11-01-2021 End: 11-01-[address] JOO GONZALEZ Facility:[facility] Start: 09-23-[address] JOO GONZALEZ Facilit y:[facility]1 Start: 09-21-2021 End: 09-21-2021 ambulatory LEONARDO DURÁN Facility:[facility] Procedures Date Procedure Procedure Detail Performing Clinician Start: 12-26-2023 ALL C REACTIVE PROTEIN Crystal Alison 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 Phone: Start: 12-26-2023 ALL URIC ACID Crystal Fajardo meggan 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 Phone: Start: 06-13-[address] 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 Phone: Start: 11-01-2021 Colonoscopy [address] 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 Phone: Plan of Treatment Date Care Activity Detail Author Start: 11-01-2031 Screening for malign ant neoplasm of colon [facility] Start: 08-20-2024 Screening for malign ant neoplasm of cervix [facility] Start: 06-13-2024 Screening for malign ant neoplasm of breast Mammogram [facility] Start: 01-13-2024 End: 01-13-2024 Patient encounter procedure 01/13/2024 1:00 PM EST Office Visit [facility] [address] [place] [phone] Crystal Rosas NP [address] [place] [address] [facility] Start: 01-02-2024 End: 01-02-2024 Patient encounter procedure 01/02/2024 8:50 AM EST Office Visit [facility] [address] [phone] Ekaterina Durán PA [address] [place], [place] [id number] [facility] Start: 12-26-2023 End: 12-26-2023 Patient encounter procedure 12/26/2023 3:00 PM EST Office Visit [facility] [address] [place] [phone] Ekaterina Durán PA [address] [place], [place] [id number] Well woman exam with routine gynecological exam [facility] Comment on above: Well woman exam with routine gynecological exam Start: 12-26-2023 End: 12-26-2024 DXA Skeletal system Views for bone density DEXA bone density Imaging Routine Post menopausal syndrome Age-related osteoporosis without current pathological fracture ([facility]) Expected: 12/26/2023 (Approximate), Expires: 12/26/2024 [facility] Comment on above: Expected: 12/26/2023 (Approximate), Expires: 12/26/2024 Start: 12-26-2023 End: 02-23-2025 MG Breast - bilateral Screening Bilateral screening mammogram Imaging Routine Breast cancer screening by mammogram Expected: 12/26/2023, Expires: 02/23/2025 [facility] Work Phone: Comment on above: Expected: 12/26/2023 , Expires: 02/23/2025 Start: 12-26-2023 End: 12-26-2024 US for US PELVIS-TRANSVAG IF INDICATED Imaging Routine Amenorrhea Expected: 12/26/2023 (Approximate), Expires: 12/26/2024 [facility] Comment on above: Expected: 12/26/2023 (Approximate), Expires: 12/26/2024 Start: 1992 Screening for malign ant neoplasm of cervix Pap Smear [facility] Start: 1970 Screening for malign ant neoplasm of colon [facility] CBC W Auto Different ial panel - Blood CBC and differential Lab Routine Amenorrhea Ordered: 12/26/2023 [facility] Comment on above: Ordered: 12/26/2023 hCG, quantitative, hCG, quantitative, Lab Routine Amenorrhea Ordered: 12/26/2023 [facility] Comment on above: Ordered: 12/26/2023 Hemoglobin A1c/Hemoglobin.total in Blood Hemoglobin A1c Lab Routine Amenorrhea Ordered: 12/26/2023 [facility] Comment on above: Ordered: 12/26/2023 Prolactin Prolactin Lab Ro utine Amenorrhea Ordered: 12/26/2023 [facility] Comment on above: Ordered: 12/26/2023 THIN PREP TIS PAP AN D HR HPV DNA THIN PREP TIS PAP AND HR HPV DNA Pathology and Cytology Routine Well woman exam with routine gynecological exam Ordered: 12/26/2023 [facility] Comment on above: Ordered: 12/26/2023 Thyrotropin [Units/volume] in Serum or Plasma TSH Lab Routine Amenorrhea Ordered: 12/26/2023 [facility] Comment on above: Ordered: 12/26/2023 Immunizations Immunization Date Immunization Notes [facility] influenza virus vacc ine, whole virus Crystal Rosas 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 Phone: [facility] Payers Date Payer Category Payer Unknown BCBS BCBS [id number] 2022-Present [phone] [address] [place] [address] [id number] 2022 Unknown [id number] 2019 Unknown [id number] 1970 Unknown [id number] 1970 Unknown [id number] 1970 Unknown [id number] 1970 Unknown [id number] 1970 Unknown [id number] 1970 Unknown [id number] 1970 Unknown [id number] 1970 Unknown [id number] 1970 Unknown [id number] Social History Date Type Detail Facility Start: 11-19-2023 Tobacco smoking status ILIS Never sm oked tobacco [facility] Start: 12-23-2023 End: 12-26-2023 Alcohol intake Current drinker of alcohol (finding) [facility] Start: 11-18-2023 End: 12-23-2023 [facility] of [facility] Start: 11-18-2023 End: 12-23-2023 Humiliation, Afraid, Rape, and Kick questionnaire [HARK] [facility] Within the last year , have you been afraid of your partner or ex-partner? No [facility] How often do you att end nondenominational or voodoo services? Patient refused [facility] Are you now , , , , never or living with a partner? [facility] How often to you hav e a drink containing alcohol? 2-3 time sa week [facility] How many standard dr inks containing alcohol do you have on a typical day? 1 or 2 [facility] How often do you hav e 6 or more drinks on 1 occasion? Never [facility] Do you feel stress - tense, restless, nervous, or anxious, or unable to sleep at night because your mind is troubled all the time - these days [OSQ] Only a little [facility] (I/We) worried wheth er (my/our) food would run out before (I/we) got money to buy more. Never true [facility] Start: 11-19-2023 Alcohol Comment 1-2 drinks mon thly or less [facility] Start: 1970 Sex Assigned At Not on file [facility] History of Present illness Narrative 12-26-2023 LEONARDO Garcia - 12/26/2023 3:00 PM ESTMarjackelyn Arthur MA - 12/26/2023 3:00 PM EST Note Date & Type Note Facility 12-26-2023 History of Presen t illness Narrative Reason for Appointment: Patient ID: Bev Garcia is a 53 y.o. female who presents for Well Women Visit Patient presents today for Annual Exam appointment. Current Medications: has a current medication list which includes the following prescription(s): aspirin, cephalexin, cholecalciferol, duloxetine, galcanezumab, magnesium, meloxicam, and sumatriptan, and the following Facility-Administered Medications: medroxyprogesterone. Medical History: Active Ambulatory Problems Diagnosis Date Noted Adult acne 10/21/2023 Chronic migraine without aura without status migrainosus, not intractable ([facility]) 10/21/2023 BMI 33.0-33.9,adult 11/21/2023 Pain and swelling of toe of right foot 12/23/2023 Cellulitis of toe of right foot 12/23/2023 Resolved Ambulatory Problems Diagnosis Date Noted Hyperlipidemia ([facility]) 12/23/2023 Past Medical History: Diagnosis Date Joint pain Migraine headache ([facility]) Family History Problem Relation Name Age of Onset Thyroid disease Mother Social History Tobacco Use Smoking status: Never Smokeless tobacco: Not on file Vaping Use Vaping Use: Never used Substance Use Topics Alcohol use: Yes Comment: 1-2 drinks monthly or less Drug use: Defer Past Surgical History: Procedure Laterality Date APPENDECTOMY SECTION, LOW TRANSVERSE x2 OOPHORECTOMY Right TUBAL LIGATION Allergies Allergen Reactions Wound Dressing Adhesive Other Reaction(s): Unknown Review of Systems: Review of Systems Constitutional: Negative. HENT: Negative. Eyes: Negative. Respiratory: Negative. Cardiovascular: Negative. Gastrointestinal: Negative. Musculoskeletal: Negative. Skin: Negative. Neurological: Negative. Psychiatric/Behavioral: Negative. All other systems reviewed and are negative. Hematological: Negative. Endocrine: Negative. Objective Physical Exam Constitutional: Appearance: Normal appearance. She is well-developed. Genitourinary: Vulva normal. Right Adnexa: not tender and no mass present. Left Adnexa: not tender and no mass present. No cervical discharge. Breasts: Breasts are soft. Right: Normal. Left: Normal. Cardiovascular: Rate and Rhythm: Normal rate and regular rhythm. Pulmonary: Effort: Pulmonary effort is normal. Breath sounds: Normal breath sounds. Abdominal: General: Bowel sounds are normal. There is no distension. Palpations: Abdomen is soft. Tenderness: There is no abdominal tenderness. There is no guarding or rebound. Musculoskeletal: General: No swelling. Normal range of motion. Right lower leg: No edema. Left lower leg: No edema. Neurological: Mental Status: She is alert and oriented to person, place, and time. Skin: General: Skin is warm and dry. Psychiatric: Mood and Affect: Mood normal. Behavior: Behavior normal. Vitals and nursing note reviewed. Exam conducted with a mixing house operator present. Patient presents today for an annual exam. Patient states she is doing well and has no complaints. Pap was obtained without difficulty and patient given mammogram/Dexa order to have scheduled/obtained. Amenorrhea labs/US was given to pt to have done and to schedule back in 4 weeks for a televisit appt w/fan to review. Follow Up: Patient is to return in one year for annual unless needed otherwise. Vitals: Estimated body mass index is 33.15 kg/m as calculated from the following: Height as of 12/23/23: 5' 8 . Weight as of this encounter: 218 lb. BP: 122/74 No LMP recorded. Patient is postmenopausal. Assessment/Plan Encounter Diagnoses Name Primary? Well woman exam with routine gynecological exam Breast cancer screening by mammogram Post menopausal syndrome Age-related osteoporosis without current pathological fracture ([facility]) Patient presents today for an annual exam. Patient states she is doing well and has no complaints. Pap was obtained without difficulty and patient given mammogram and dexa scan order to have scheduled/obtained. Pt dicussed premenopausal symptoms, states has not had period in 6mo and last Depot injection in July. Pt wished to have lab work performed and will follow up via telehealth once lab work and US completed. Follow Up: Patient is to return in one year for annual unless needed otherwise. Documented by Manjula Arthur MA on behalf of: LEONARDO Garcia Reason for Appointment: Patient ID: Bev Garcia is a 53 y.o. female who presents for Well Women Visit Patient presents today for Annual Exam appointment. Current Medications: has a current medication list which includes the following prescription(s): aspirin, cephalexin, cholecalciferol, duloxetine, galcanezumab, magnesium, meloxicam, and sumatriptan, and the following Facility-Administered Medications: medroxyprogesterone. Medical History: Active Ambulatory Problems Diagnosis Date Noted Adult acne 10/21/2023 Chronic migraine without aura without status migrainosus, not intractable ([facility]) 10/21/2023 BMI 33.0-33.9,adult 11/21/2023 Pain and swelling of toe of right foot 12/23/2023 Cellulitis of toe of right foot 12/23/2023 Resolved Ambulatory Problems Diagnosis Date Noted Hyperlipidemia ([facility]) 12/23/2023 Past Medical History: Diagnosis Date Joint pain Migraine headache ([facility]) Family History Problem Relation Name Age of Onset Thyroid disease Mother Social History Tobacco Use Smoking status: Never Smokeless tobacco: Not on file Vaping Use Vaping Use: Never used Substance Use Topics Alcohol use: Yes Comment: 1-2 drinks monthly or less Drug use: Defer Past Surgical History: Procedure Laterality Date APPENDECTOMY SECTION, LOW TRANSVERSE x2 OOPHORECTOMY Right TUBAL LIGATION Allergies Allergen Reactions Wound Dressing Adhesive Other Reaction(s): Unknown Review of Systems: Review of Systems Objective OBGyn Exam Vitals: Estimated body mass index is 33.15 kg/m as calculated from the following: Height as of 12/23/23: 5' 8 . Weight as of this encounter: 218 lb. BP: 122/74 No LMP recorded. Patient is postmenopausal. Assessment/Plan Encounter Diagnoses Name Primary? Well woman exam with routine gynecological exam Breast cancer screening by mammogram Post menopausal syndrome Age-related osteoporosis without current pathological fracture ([facility]) Documented by Manjula Arthur MA on behalf of: LEONARDO Garcia documented in this encounter [facility] Clinical Note 11-01-2021 Note Date & Type Note Facility 11-01-2021 Note OPERATIVE NOTE OPERATION DATE: 11-01-21 ANESTHETIC:Monitored anesthesia care. PREOPERATIVE DIAGNOSIS:Colorectal screening. POSTOPERATIVE DIAGNOSIS:Normal colonoscopy to the cecum. PROCEDURE NAME:Colonoscopy. ESTIMATED BLOOD LOSS: Zero. INDICATIONS AND CONSENT: The patient is a 51 year-old female who presents to colorectal screening. Indications, risks, benefits, and alternatives of proceeding with colonoscopy were explained extensively to the patient including the risk of bleeding, colon perforation, anesthetic complications. All of her questions were answered and informed consent was obtained. PROCEDURE: The patient was brought to the OR and placed in the left lateral decubitus position. Monitored anesthesia care was provided. Rectal exam was performed which showed no masses or blood. The scope was inserted in the anal canal, under direct visualization it was advanced. With the aid of abdominal compression it was advanced to the cecum where cecal markings were clearly identified. There was noted to be a good prep. Upon withdrawal of the scope mucosal surfaces were carefully examined. There was noted to be a redundant tortuous colon, no mass lesions or polyps. No inflammatory changes or ulcerations. Rare sigmoid diverticula. The scope was retroflexed in the anal canal, there was noted to be some prominent rectal veins, no significant hemorrhoidal disease. The scope was withdrawn. The patient tolerated the procedure well and was sent to the Recovery Room in good condition. cc:Crystal Rosas. [facility] Signed and Approved by: DR JOO GONZALEZ . 11/08/2021 08:02:00 [facility] Signed and Approved by: DR JOO GONZALEZ . 11/08/2021 08:02:00 [facility] Clinical Note 09-08-2021 Note Date & Type Note Facility 09-08-2021 Note Chief Complaint consultation for screening colonoscopy HPI Staff 51 year old female presents on consultation from Crystal Rosas for screening colonoscopy. Denies abdominal or rectal pain. No rectal bleeding. Denies nausea, vomiting or change in bowel habits. Denies unexplained weight loss. Never had colonoscopy in the past. No known family history of colon cancer. History of Present Illness 51 yo female referred for colorectal screening; denies change in bms or blood in stools; no abdominal complaints; no previous colonoscopy; abdominal operations significant for appendectomy, , tubal ligation, ventral hernia repair; on baby asa daily, no NSAIDs, no SBE prophylaxis. no fmhx of GI malignancy or IBD. Review of Systems PHQ Score Initial Depression Screen Score: 0 ROS - Provider Constitutional: no fever, no sweats, no weight loss. Eyes: no glasses, no blurred vision, no visual loss. ENMT: no dentures, no hoarseness, no swallowing difficulties, no hearing loss, no ear infection(s), no nose bleeds. Cardiovascular: normal blood pressure, no chest pain, regular heartbeat, no heart murmur. Respiratory: no shortness of breath, no cough, no asthma, no wheezing. Gastrointestinal: no nausea, no vomiting, no diarrhea, no constipation, no blood in stool, no change in bowel habits, no abdominal pain, no hepatitis. Genitourinary: no kidney stones, no urine infection, no dysuria. Musculoskeletal: no pain, no weakness. Skin: no changing moles, no rash, no skin lumps. Neurologic: no seizures, no epilepsy, no headache. Psychiatric: no emotional or psychiatric problem. Heme/Lymph: no bleeding problems, no anemia, no blood clots, no transfusions. Allergy/Immunologic: no swollen lymph nodes/glands, no IV drug abuse. Other: Additional ROS info: Except as noted in the above Review of Systems and in the History of Present Illness, all other systems have been reviewed and are negative or noncontributory. Physical Exam Vitals & Measurements T: 36.2 ?C (Temporal Artery) HR: 84(Peripheral) RR: 16 BP: 144/88 HT: 172.7 cm HT: 172.72 cm WT: 100.2 kg WT: 100.2 kg BMI: 33.59 HEENT: normal conjunctiva, sclera clear, no scleral icterus, EOM intact, PERRLA, oral mucosa moist without lesions. Neck: trachea midline, no mass, symmetric, no thyromegaly or nodules, no adenopathy Respiratory: lungs CTA, respirations non labored. Cardiovascular: regular rate and rhythm, no murmur, no pedal edema or varicosities. Gastrointestinal: soft, non distended, no tenderness, no masses, no palpable hernias, diastasis recti no, no hepatosplenomegaly; normal bs Lymphatic: no cervical adenopathy, Musculoskeletal: normal gait, digits and nails without infection, nodes, cyanosis, clubbing. Skin: no rashes, no lesions, no ulcers, no subcutaneous nodules, induration. Psychiatric/Neuro: oriented to time, place, person, judgement normal, affect appropriate for age, insight intact, no focal deficits. Tests: , review of old records completed, Discussed surgical options, risks, and possible complications with patient. Follow-up No qualifying data available Problem List/Past Medical History Ongoing Acquired valgus deformity of left ankle BMI 33.0-33.9,adult Migraine headache Posterior tibial tendon dysfunction, left Historical No qualifying data Procedure/Surgical History Repair of ventral hernia (06/16/2013), Appendectomy, section, Left salpingectomy, Right oophorectomy, Tubal ligation. Medications aspirin 81 mg Oral EC Tab, 81 mg= 1 tab(s), Oral, Daily Depo-Provera 150mg/mL intramuscular suspension, 150 mg, IntraMuscular, q3mo duloxetine 30 mg Cap-DR, 1 cap(s), Oral, Daily Emgality Prefilled Pen 120 mg/mL subcutaneous solution, 120 mg, SubCutaneous, qMonth Imitrex 100 mg Tab, 100 mg= 1 tab(s), Oral, Once magnesium oxide 400 mg Tab, 200 mg= 0.5 tab(s), Oral, BID spironolactone 100 mg Tab, 100 mg= 1 tab(s), Oral, Daily Vitamin B-12 1000 mcg oral tablet, 1000 mcg= 1 tab(s), Oral, Daily Vitamin D 1000 intl units Tab, 25 mcg= 1 tab(s), Oral, Daily Allergies Adhesive Bandage (Rash) Nickel (Rash) Social History Alcohol - Denies Alcohol Use, 09/08/2021 Substance Abuse - Denies Substance Abuse, 09/08/2021 Tobacco Never (less than 100 in lifetime) Tobacco Use:. Never Smokeless Tobacco Use:., 09/08/2021 Family History Acute myocardial infarction: Father. Asthma: Sister. Hyperlipidemia: Mother. Hypertension: Father. Hypothyroidism: Mother and Sister. Immunizations Vaccine Date Status SARS-CoV-2 (COVID-19) mRNA-1273 vaccine 12/07/2020 Recorded SARS-CoV-2 (COVID-19) mRNA-1273 vaccine 11/09/2020 Recorded screening for malignant neoplasm of colon: plan colonoscopy under anesthesia, informed consent obtained. [facility] Comment on above: Result Comment: Elec tronically Signed By: SEAN BRADLEY, Joo Hyde\Date and Time Signed: 09/08/21 20:14 EDT Evaluation note Note Date & Type Note Facility Evaluation note Diagnosis Well woman exam with routine gynecological exam Routine gynecological examination Breast cancer screening by mammogram Post menopausal syndrome Asymptomatic postmenopausal status (age-related) (natural) Age-related osteoporosis without current pathological fracture (CMS/HCC) Amenorrhea Absence of menstruation documented in this encounter [facility] Summary Purpose Family History No Family History Records FoundNo Family History Records FoundNo Family History Records Found Advance Directives No Advanced Directives Records FoundNo Advanced Directives Records FoundNo Advanced Directives Records Found Additional Source Comments INFORMATION SOURCE (unrecogn ized section and content) DATE CREATED AUTHOR 11/09/2021 [facility] DATE CREATED AUTHOR AUTHOR'S ORGANIZ ATION 09/21/[address] [facility] DATE CREATED AUTHOR AUTHOR'S ORGANIZ ATION 01/14/2024 [facility] Care Teams (unrecognized sec tion and content) Assistant Sales Manager Relationship Specialty Start Date End Date Everette Mullen MD PCP - General Family Medicine 05/07/23 Crystal Rosas NP [address] [place] [address] PCP - [employer] 11/11/23 Assistant Sales Manager Relationship Specialty Start Date End Date Everette Mullen MD PCP - General Family Medicine 05/07/23 Crystal Rosas NP [address] [place] [address] PCP - [employer] 11/11/23 Assistant Sales Manager Relationship Specialty Start Date End Date Everette Mullen MD PCP - General Family Medicine 05/07/23 Crystal Rosas NP [address] [place] [address] PCP - [employer] 11/11/23 Reason for Visit (unrecogniz ed section and content) Reason Comments Well Women Visit FOR RECORDS PERTAINING TO PATIENTS WHO ARE OR HAVE BEEN ENROLLED IN A CHEMICAL DEPENDENCY/SUBSTANCEABUSE PROGRAM, SOME INFORMATION MAY BE OMITTED. This clinical summary was aggregated from multiple sources. Caution should be exercised in using it in the provision of clinical care. This summary normalizes information from multiple sources, and as a consequence, information in this document may materially change the coding, format and clinical context of patient data. In addition, data may be omitted in some cases. CLINICAL DECISIONS SHOULD BE BASED ON THE PRIMARY CLINICAL RECORDS. [facility] [employer] [facility] provides no warranty or guarantee of the accuracy or completeness of information in this document.
--- NOTE | 2024-03-11 15:15 | P.GSHP_ITS ---
History of Present Illness History of Present Illness Chief complaint: right rotator cuff tear Narrative: Patient presents for preadmission testing. The patient states she had a shoulder injury and has weakness of her right shoulder. She states she does use meloxicam which helps with her pain but she still has weakness. She denies numbness, tingling, or any other complaints. Review of Systems ROS Narrative REVIEW OF SYSTEMS: Negative except as stated in HPI, ten or more systems reviewed. Constitutional: No fever , chills, weakness ENT: No sore throat or epistaxis Cardiovascular: No edema, chest pain, palpitations, or activity intolerance Respiratory: No shortness of breath, cough, or wheezing Gastrointestinal: No abdominal pain, constipation, diarrhea, or vomiting Genitourinary: No dysuria or hematuria Neurological: No numbness, tingling, weakness, or headache Psychiatric: No mood changes PFSH PFS Medical History (Updated 03/11/24 @ 15:11 by Fabi Bhat NP) Rotator cuff tear ?M75.100 - Unspecified rotator cuff tear or rupture of unspecified shoulder, not specified as traumatic (ICD-10) Arthritis ?M19.90 - Unspecified osteoarthritis, unspecified site (ICD-10) Depression ?F32.A - Depression, unspecified (ICD-10) COVID-19 ?U07.1 - COVID-19 (ICD-10) Migraine ?G43.909 - Migraine, unspecified, not intractable, without status migrainosus (ICD-10) Menopause ?Z78.0 - Asymptomatic menopausal state (ICD-10) Surgical History (Updated 03/11/24 @ 14:57 by Fabi Bhat NP) History of colonoscopy ?Z98.890 - Other specified postprocedural states (ICD-10) H/O ventral hernia repair ?Z98.890 - Other specified postprocedural states (ICD-10) ?Z87.19 - Personal history of other diseases of the digestive system (ICD-10) History of right oophorectomy ?Z90.721 - Acquired absence of ovaries, unilateral (ICD-10) History of appendectomy ?Z90.49 - Acquired absence of other specified parts of digestive tract (ICD- 10) History of section ?Z98.891 - History of uterine scar from previous surgery (ICD-10) Family History (Updated 03/11/24 @ 14:57 by Fabi Bhat NP) Other Family history of hypertension Family history of myocardial infarction Family history of uterine cancer Glioblastoma Subarachnoid bleed Social History (Updated 03/11/24 @ 14:50 by Fabi Bhat NP) Within the past year, how often did you have a drink containing alcohol: 2-4 times a month Smoking status: Never smoker Previous occupational history: [employer] Highest level of school completed/degree received: Associate degree: academic program Meds Home Medications and Allergies Home Medications ?Medication ?Instructions ?Recorded ?Confirmed ?Type aspirin 81 mg tablet,delayed 81 mg PO DAILY 03/11/24 03/11/24 History release (Adult Aspirin Regimen) duloxetine 30 mg capsule,delayed 30 mg PO QDAY 03/11/24 03/11/24 History release galcanezumab-gnlm 120 mg/mL 120 mg subcut .qmonth 03/11/24 03/11/24 History subcutaneous pen injector (Emgality Pen) meloxicam 15 mg tablet 15 mg PO DAILY 03/11/24 03/11/24 History sumatriptan succinate 100 mg tablet 100 mg PO Q2H PRN migraine headache 03/11/24 03/11/24 History Allergies Allergy/AdvReac Type Severity Reaction Status Date / Time No Known Drug Allergies Allergy Verified 03/11/24 14:49 Exam Narrative Exam Narrative: Constitutional: Awake, alert, comfortable, well-appearing, nontoxic, interactive, vital signs as charted Head: Normocephalic, atraumatic Neck: Supple, normal appearance, normal range of motion, no meningeal signs, no lymphadenopathy Respiratory: No respiratory distress, breath sounds clear Cardiovascular: Regular rate and rhythm, strong and regular heart tones Skin: No rashes or induration, no lesions, only visible skin inspected Neuro: No neurological deficits, normal sensation Psychiatric: Oriented ?3, normal affect Assessment and Plan Assessment and Plan (1) Rotator cuff tear: Plan Right shoulder arthroscopic rotator cuff repair, possible biceps tenodesis scheduled with Dr. Kim 03/23/2024.
[2024-03-11 15:59] LABS: Anion Gap 12.8; BUN Creatinine Ratio 32.7; Chloride 106 mmol/L (98-107); Estimated GFR (African America >60 (>=60); Estimated GFR (Non-African Ame >60 (>=60); Glucose 90 mg/dL (74-106); Potassium 3.8 mmol/L (3.5-5.1); Sodium 140 mmol/L (136-145)
[2024-03-11 16:04] LABS: Basophils Percent Auto 0.6 % (0.2-2.0); Eosinophils Absolute Auto 0.2 10^3/uL (0.0-0.7); Eosinophils Percent Auto 3.6 % (0.9-7.0); Hematocrit 40.4 % (36.0-48.0); Hemoglobin 13.5 g/dL (12.0-16.0); Immature Granulocytes Abs Auto 0.01 10^3/uL (0.00-0.03); Immature Granulocytes Pct Auto 0.2 % (0.0-0.5); Lymphocytes Absolute Auto 1.6 10^3/uL (1.2-3.8); Lymphocytes Percent Auto 30.6 % (20.5-60.0); Mean Corpuscular HGB Conc 33.4 g/dL (29.9-35.2); Mean Corpuscular Volume 89.8 fL (81.0-99.0); Mean Platelet Volume 9.9 fL (9.5-13.5); Monocytes Absolute Auto 0.4 10^3/uL (0.3-0.8); Monocytes Percent Auto 8.2 % (1.7-12.0); Neutrophils Percent Auto 56.8 % (43.0-75.0); Platelet Count 246 10^3/uL (150-450); Red Cell Distribution Width 13.7 % (11.0-15.0); White Blood Count 5.2 10^3/uL (4.0-11.0)
== END 2024-03-11 14:29 | disposition home or self-care (01) ==
LOC: PST 14:29
PROVIDERS: PCP Nurse Practitioner; Visit Provider Orthopaedic Surgery
DX: Z01.810 Encounter for preprocedural cardiovascular examination (principal); Z01.812 Encounter for preprocedural laboratory examination; Z01.818 Encounter for other preprocedural examination; M75.121 Complete rotator cuff tear or rupture of right shoulder, not specified as traumatic
CPT/HCPCS: 80048; 85025; 93005; G0463

== ENCOUNTER 2024-03-13 10:53 | Outpatient (OUT) | payer BC, SELFPAY ==
--- NOTE | 2024-03-13 10:57 | MR_ITS ---
[facility] [place] [id number] Patient Name: MARIBEL FLORES MRN: [id number] date: 1970 Sex: F Assigned Patient Location: MRI Current Patient Location: Accession/Order Number: [id number] Exam Date: 03/13/2024 11:02 Report Date: 03/16/2024 09:21 At the request of: MANJIT PALMA Procedure: MR shoulder LT wo con MR shoulder LT wo con, 03/13/2024 11:02 AM EDT INDICATION: Acute Pain Of Left Shoulder M25.512 COMPARISON: There is no appropriate prior study for comparison. TECHNIQUE: Multiplanar and multisequential MR images of the left shoulder were obtained without contrast. FINDINGS: There are moderate hypertrophic degenerative changes of AC joint. Mild degenerative changes of the left glenohumeral joint are noted. There is no os acromiale. No Hill-Sachs is noted. No acute fracture or dislocation is noted. The quadrilateral space and supraspinous notch are unremarkable. The T2 prolongation within the insertional portions of infraspinatus and supraspinatus may suggest tendinosis. There is a high-grade the partial width full-thickness tear of supraspinatus measuring 1.9 cm in transverse diameter with retraction of the tendons for approximately 1.8cm. The long head of biceps shows intra-articular tendinosis The teres minor subscapularis are unremarkable. No fatty muscle atrophy is noted. The labrum shows moderate degenerative changes in particular anteriorly. There is increased intra articular joint effusion. There is subacromial subdeltoid bursitis. MR/MR shoulder LT wo con IMPRESSION: High-grade partial tear of the supraspinatus with retraction of tendon. Insertional tendinosis of supraspinatus and infraspinatus. Intra-articular tendinosis of the long head of biceps. Mild degenerative changes of the left glenohumeral joint. Electronically authenticated by: JUANA WALLACE Date: 03/16/2024 09:21
--- OUTSIDE RECORDS SUMMARY | 2024-03-13 10:58 | XMS_ITS | CCD ---
Author Organization [facility] Care Team Providers Care End Stapler Name Role Phone AICHHOLZ, EVENT COORDINATOR MARKETING AND SALES CRYSTAL Admitting Unavailable AICHHOLZ, EVENT COORDINATOR MARKETING AND SALES CRYSTAL Attending Unavailable AICHHOLZ, EVENT COORDINATOR MARKETING AND SALES CRYSTAL Consulting Unavailable AICHHOLZ, EVENT COORDINATOR MARKETING AND SALES CRYSTAL Primary Care Unavailable AICHHOLZ, EVENT COORDINATOR MARKETING AND SALES CRYSTAL Primary Care Unavailable AICHHOLZ, EVENT COORDINATOR MARKETING AND SALES CRYSTAL Admitting Unavailable AICHHOLZ, EVENT COORDINATOR MARKETING AND SALES CRYSTAL Attending Unavailable AICHHOLZ, EVENT COORDINATOR MARKETING AND SALES CRYSTAL Consulting Unavailable NILL, DR GE Attending Unavailable NILL, DR GE Consulting Unavailable NILL, DR GE Admitting Unavailable AICHHOLZ, EVENT COORDINATOR MARKETING AND SALES CRYSTAL Primary Care Unavailable RAZIA MENDIETA Consulting Unavailable NILL, DR GE Admitting Unavailable NILL, DR GE Attending Unavailable AICHHOLZ, EVENT COORDINATOR MARKETING AND SALES CRYSTAL Primary Care Unavailable LEONARDO DURÁN Attending Unavailable LEONARDO DURÁN Consulting Unavailable LEONARDO DURÁN Admitting Unavailable AICHHOLZ, EVENT COORDINATOR MARKETING AND SALES CRYSTAL Primary Care Unavailable Everette Mullen MD Primary Care Provider Aichholz HARVEST MANAGER, Crystal Unavailable AICHHOLZ, CRYSTAL Attending Unavailable AICHHOLZ, CRYSTAL Attending Unavailable EKATERINA DURÁN Attending Unavailable AICHHOLZ, CRYSTAL Attending Unavailable Allergies Allergy Classification Reported Allergen(s) Allergy Type Date of Onset Reaction(s) Facility (2 sources) Adhesive agent Drug allergy (disorder) 06-08-2013 [facility] (1 source) Glycerin Drug Allergy 06-14-2013 [facility] (1 source) Leucine Drug Allergy [facility] (1 source) Aquasol A Drug allergy (disorder) [facility] Medications Current Medications Medication Drug [...] Resolved: 12-23-2023 Chronic Other aftercare (1 source) 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; 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: [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] Onset: 11-07-2021 Episodic Unclassified (1 source) CONTACT W/AND (SUSP) EXPOS COVID-19; 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: [CONTACT W/AND (SUSP) EXPOS COVID-19] Onset: 09-21-2021 Results Test Name Value Interpretation Reference Range Facility ALL C REACTIVE PROTEINon CRP [Mass/Vol] mg/L NINF - 0.50 mg/dL [facility] ALL URIC ACIDon 12-26-2023 Urate [Mass/Vol] 2.7 mg/dL 2.6 - 6.0 mg/dL [facility] No Panel Informationon 12-26 [facility] LIPID PROFILEon 09-14-2022 CHOL-HDL RATIO NORM SEE BELOW Normal [facility] Comment on above: Result Comment: 3.3 - 4.4 LOW RISK 4.4 - 7.1 AVERAGE RISK 7.1 - 11.0 MODERATE RISK >11.0 HIGH RISK Performed By: #### L IPID #### [facility] [address] [address] [address] Cami Quispe Cholesterol [Mass/Vol] 229 mg/dL Critically high <=200 [facility] Comment on above: Performed By: #### L IPID #### [facility] [address] [address] [address] Cami Quispe Cholesterol in HDL [Mass/Vol] 60 mg/dL Normal 40-60 [facility] Comment on above: Performed By: #### L IPID #### [facility] [address] [address] [address] Cami Quispe Cholesterol in LDL [Mass/Vol] 160.2 mg/dL Normal [facility] Comment on above: Performed By: #### L IPID #### [facility] [address] [address] [address] Cami Quispe Cholesterol.total/Ch olesterol in HDL [Mass ratio] 3.8 {ratio} Normal [facility] Comment on above: Performed By: #### L IPID #### [facility] [address] [place] [address] Dr. Cami Quispe HDL NORMAL > or = 60 mg/dl - LOW CARDIOVASCULAR RISK <40 mg/dl - HIGH CARDIOVASCULAR RISK Normal [facility] Comment on above: Performed By: #### L IPID #### [facility] [address] [address] [address] Cami Quispe LDL CALC NORMAL SEE BELOW Normal [facility] Comment on above: Result Comment: <100 mg/dl OPTIMAL 100 - 129 mg/dl NEAR OR ABOVE OPTIMAL 130 - 159 mg/dl BORDERLINE HIGH 160 - 189 mg/dl HIGH >190 mg/dl VERY HIGH Performed By: #### L IPID #### [facility] [address] [address] [address] Cami Quispe Triglyceride [Mass/Vol] 44 mg/dL Normal <=150 [facility] Comment on above: Performed By: #### L IPID #### [facility] [address] [place] [address] Dr. Cami Quispe VLDL CALC 8.8 mg/dL Normal [facility] Comment on above: Performed By: #### L IPID #### [facility] [address] [address] [address] Cami Quispe CBC AUTO DIFFon 04-05-2022 BASO # 0.0 103/ul Normal 0.0-0.1 [facility] Comment on above: Performed By: #### C BC #### [facility] [address] [place] [address] Dr. Cami Quispe Basophils/100 WBC (Bld) 0.6 % Normal 0.2-2.0 [facility] Comment on above: Performed By: #### C BC #### [facility] [address] [place] [address] Dr. Cami Quispe EO # 0.2 103/ul Normal 0.0-0.7 [facility] Comment on above: Performed By: #### C BC #### [facility] [address] [place] [address] Dr. Cami Quispe Eosinophils/100 WBC (Bld) 3.2 % Normal 0.9-7.0 [facility] Comment on above: Performed By: #### C BC #### [facility] [address] [place] [address] Dr. Cami Quispe Erythrocyte distribution width (RBC) [Ratio] 13.4 % Normal 11.0-15.0 [facility] Comment on above: Performed By: #### C BC #### [facility] [address] [place] [address] Dr. Cami Quispe Hematocrit (Bld) [Volume fraction] 47.9 % Normal 36.0-48.0 [facility] Comment on above: Performed By: #### C BC #### [facility] [address] [place] [address] Dr. Cami Quispe Hemoglobin (Bld) [Mass/Vol] 15.8 g/dL Normal 12.0-16.0 [facility] Comment on above: Performed By: #### C BC #### [facility] [address] [place] [address] Dr. Cami Quispe IG # 0.01 10e3/ul Normal 0.00-0.03 [facility] Comment on above: Performed By: #### C BC #### [facility] [address] [place] [address] Dr. Cami Quispe IG % 0.2 % Normal 0.0-0.5 [facility] Comment on above: Performed By: #### C BC #### [facility] [address] [place] [address] Dr. Cami Quispe LYMPH # 1.8 103/ul Normal 1.2-3.8 [facility] Comment on above: Performed By: #### C BC #### [facility] [address] [place] [address] Dr. Cami Quispe Lymphocytes/100 WBC (Bld) 29.6 % Normal 20.5-60.0 [facility] Comment on above: Performed By: #### C BC #### [facility] [address] [place] [address] Dr. Cami Quispe MANUAL DIFF REQ NO Normal [facility] Comment on above: Performed By: #### C BC #### [facility] [address] [place] [address] Dr. Cami Quispe MCH (RBC) [Entitic mass] 30.8 pg Normal 26.7-34.0 [facility] Comment on above: Performed By: #### C BC #### [facility] [address] [place] [address] Dr. Cami Quispe MCHC (RBC) [Mass/Vol] 33.0 g/dL Normal 29.9-35.2 [facility] Comment on above: Performed By: #### C BC #### [facility] [address] [place] [address] Dr. Cami Quispe MCV (RBC) [Entitic vol] 93.4 fL Normal 81.0-99.0 [facility] Comment on above: Performed By: #### C BC #### [facility] [address] [place] [address] Dr. Cami Quipse MONO # 0.5 103/ul Normal 0.3-0.8 [facility] Comment on above: Performed By: #### C BC #### [facility] [address] [place] [address] Dr. Cami Quispe Monocytes/100 WBC (Bld) 7.4 % Normal 1.7-12.0 [facility] Comment on above: Performed By: #### C BC #### [facility] [address] [address] [address] Cami Quispe NEUT # 3.7 103/ul Normal 1.4-6.5 [facility] Comment on above: Performed By: #### C BC #### [facility] [address] [address] [address] Cami Quispe Neutrophils/100 WBC (Bld) 59.0 % Normal 43.0-75.0 [facility] Comment on above: Performed By: #### C BC #### [facility] [address] [address] [address] Cami Quispe Platelet mean volume (Bld) [Entitic vol] 9.6 fL Normal 9.5-13.5 [facility] Comment on above: Performed By: #### C BC #### [facility] [address] [place] [address] Dr. Cami Quispe PLT 294 103/ul Normal 150-450 [facility] Comment on above: Performed By: #### C BC #### [facility] [address] [address] [address] Cami Quispe RBC 5.13 106/ul Normal 4.20-5.40 [facility] Comment on above: Performed By: #### C BC #### [facility] [address] [place] [address] Dr. Cami Quispe WBC 6.2 103/ul Normal 4.0-11.0 [facility] Comment on above: Performed By: #### C BC #### [facility] [address] [place] [address] Dr. Cami Quispe GLYCOHEMOGLOBIN A1Con 2021 ADA RECOMMENDATION SEE BELOW Normal [facility] Comment on above: Result Comment: ADA RECOMMENDED LIMIT 4.0 - 6.0 ADA THERAPEUTIC TARGET < 7.0 ACTION SUGGESTED > 7.0 Performed By: #### A 1C #### [facility] [address] [place] [address] Dr. Cami Quispe Glucose [Mass/Vol] 91 mg/dL Normal [facility] Comment on above: Performed By: #### A 1C #### [facility] [address] [address] [address] Cami Quispe HbA1c (Bld) [Mass fraction] 4.8 % Normal 4.5-6.2 [facility] Comment on above: Performed By: #### A 1C #### [facility] [address] [address] [address] Cami Quispe LIPID PROFILEon 04-05-2022 CHOL-HDL RATIO NORM SEE BELOW Normal [facility] Comment on above: Result Comment: 3.3 - 4.4 LOW RISK 4.4 - 7.1 AVERAGE RISK 7.1 - 11.0 MODERATE RISK >11.0 HIGH RISK Performed By: #### L IPID, CMP, TSH #### [facility] [address] [address] [address] Cami Quispe Cholesterol [Mass/Vol] 255 mg/dL Critically high <=200 [facility] Comment on above: Performed By: #### L IPID, CMP, TSH #### [facility] [address] [address] [address] Cami Quispe Cholesterol in HDL [Mass/Vol] 68 mg/dL Critically high 40-60 [facility] Comment on above: Performed By: #### L IPID, CMP, TSH #### [facility] [address] [address] [address] Cami Quispe Cholesterol in LDL [Mass/Vol] 176.8 mg/dL Normal [facility] Comment on above: Performed By: #### L IPID, CMP, TSH #### [facility] [address] [address] [address] Cami Quispe Cholesterol.total/Ch olesterol in HDL [Mass ratio] 3.8 {ratio} Normal [facility] Comment on above: Performed By: #### L IPID, CMP, TSH #### [facility] [address] [address] [address] Cami Quispe HDL NORMAL > or = 60 mg/dl - LOW CARDIOVASCULAR RISK <40 mg/dl - HIGH CARDIOVASCULAR RISK Normal [facility] Comment on above: Performed By: #### L IPID, CMP, TSH #### [facility] [address] [address] [address] Cami Quispe LDL CALC NORMAL SEE BELOW Normal [facility] Comment on above: Result Comment: <100 mg/dl OPTIMAL 100 - 129 mg/dl NEAR OR ABOVE OPTIMAL 130 - 159 mg/dl BORDERLINE HIGH 160 - 189 mg/dl HIGH >190 mg/dl VERY HIGH Performed By: #### L IPID, CMP, TSH #### [facility] [address] [address] [address] Cami Quispe Triglyceride [Mass/Vol] 51 mg/dL Normal <=150 [facility] Comment on above: Performed By: #### L IPID, CMP, TSH #### [facility] [address] [address] [address] Cami Quispe VLDL CALC 10.2 mg/dL Normal [facility] Comment on above: Performed By: #### L IPID, CMP, TSH #### [facility] [address] [address] [address] Cami Quispe PROF 14(COMP METB)on 022 Albumin [Mass/Vol] 4.3 g/dL Normal 3.4-5.0 [facility] Comment on above: Performed By: #### L IPID, CMP, TSH #### [facility] [address] [address] [address] Cami Quispe Albumin/Globulin [Mass ratio] 1.2 {ratio} Normal [facility] Comment on above: Performed By: #### L IPID, CMP, TSH #### [facility] [address] [address] [address] Cami Quispe ALP [Catalytic activity/Vol] 74 U/L Normal 46-116 [facility] Comment on above: Performed By: #### L IPID, CMP, TSH #### [facility] [address] [address] [address] Cami Quispe ALT [Catalytic activity/Vol] 28 U/L Normal 14-59 [facility] Comment on above: Performed By: #### L IPID, CMP, TSH #### [facility] [address] [address] [address] Cami Quispe Anion gap [Moles/Vol] 11.8 mmol/L Normal [facility] Comment on above: Performed By: #### L IPID, CMP, TSH #### [facility] [address] [address] [address] Cami Quispe AST [Catalytic activity/Vol] 16 U/L Normal 15-37 [facility] Comment on above: Performed By: #### L IPID, CMP, TSH #### [facility] [address] [address] [address] Cami Quispe Bilirubin [Mass/Vol] 1.0 mg/dL Normal 0.2-1.0 [facility] Comment on above: Performed By: #### L IPID, CMP, TSH #### [facility] [address] [address] [address] Cami Quispe Calcium [Mass/Vol] 9.2 mg/dL Normal 8.5-10.1 [facility] Comment on above: Performed By: #### L IPID, CMP, TSH #### [facility] [address] [address] [address] Cami Quispe Chloride [Moles/Vol] 102 mmol/L Normal 98-107 [facility] Comment on above: Performed By: #### L IPID, CMP, TSH #### [facility] [address] [address] [address] Cami Quispe CO2 [Moles/Vol] 26.4 mmol/L Normal 21.0-32.[address] [facility] Comment on above: Performed By: #### L IPID, CMP, TSH #### [facility] [address] [address] [address] Cami Quispe Creatinine [Mass/Vol] 0.77 mg/dL Normal 0.55-1.02 [facility] Comment on above: Performed By: #### L IPID, CMP, TSH #### [facility] [address] [address] [address] Cami Quispe EGFR-AF GERMAN >60 Normal >=[address] [facility] Comment on above: Performed By: #### L IPID, CMP, TSH #### [facility] [address] [address] [address] Cami Quispe EGFR-NON AF GERMAN >60 Normal >=60 [facility] Comment on above: Performed By: #### L IPID, CMP, TSH #### [facility] [address] [address] [address] Cami Quispe Globulin (S) [Mass/Vol] 3.7 g/dL Normal [facility] Comment on above: Performed By: #### L IPID, CMP, TSH #### [facility] [address] [address] [address] Cami Quispe Glucose [Mass/Vol] 92 mg/dL Normal 74-106 [facility] Comment on above: Performed By: #### L IPID, CMP, TSH #### [facility] [address] [place] [address] Dr. Cami Quispe Potassium [Moles/Vol] 4.2 mmol/L Normal 3.5-5.1 [facility] Comment on above: Performed By: #### L IPID, CMP, TSH #### [facility] [address] [place] [address] Dr. Cami Quispe Protein [Mass/Vol] 8.0 g/dL Normal 6.4-8.2 [facility] Comment on above: Performed By: #### L IPID, CMP, TSH #### [facility] [address] [address] [address] Cami Quispe Sodium [Moles/Vol] 136 mmol/L Normal 136-145 [facility] Comment on above: Performed By: #### L IPID, CMP, TSH #### [facility] [address] [place] [address] Dr. Cami Quispe Urea nitrogen [Mass/Vol] 14.0 mg/dL Normal 7.0-18.0 [facility] Comment on above: Performed By: #### L IPID, CMP, TSH #### [facility] [address] [place] [address] Dr. Cami Quispe Urea nitrogen/Creatinine [Mass ratio] 18.2 mg/mg Normal [facility] Comment on above: Performed By: #### L IPID, CMP, TSH #### [facility] [address] [address] [address] Cami Quispe TSHon 04-05-2022 TSH 2.255 uIU/mL Normal 0.358-3.740 [facility] Comment on above: Performed By: #### L IPID, CMP, TSH #### [facility] [address] [address] [address] Cami Quispe TSH RANGE SEE BELOW Normal [facility] Comment on above: Result Comment: <0.3 4 UIU/ml HYPERTHYROID 0.34-5.60 UIU/ml EUTHYROID >5.60 UIU/ml HYPOTHYROID Performed By: #### L IPID, CMP, TSH #### [facility] [address] [address] [address] Cami Quispe Outside Colonoscopyon 2020 Outside Colonoscopy [id number] 09#1.00CD:127 Normal [facility] Reminderson 11-02-2021 Reminders -- From: Cindi Figueroa LPN To: GSN - Clinical; Sent: 11/02/2021 14:42:12 EST Show up: 10/02/2031 08:00:00 EST Subject: colonoscopy recall Due Date/Time: 11/01/2031 08:00:00 EST Reminder/Recall Patient is due for screening colonoscopy 11/01/2031. Normal [facility] PREG HCG QUALon 11-01-2021 , QUAL Negative Normal NEGATIVE [facility] Comment on above: Performed By: #### P REG #### [facility] [address] [place] [address] Dr. Cami Quispe Cov[facility] 09-11 SARS-CoV-2 (COVID-19) RNA LOAN+probe Ql (Unsp spec) Detected Critically abnormal NOT DETECTED [facility] Comment on above: Result Comment: This test is not yet approved or cleared by the [place] FDA. When there are no FDA-approved or cleared tests available, and other criteria are met, FDA can make tests available under an emergency access mechanism called an Emergency Use Authorization (EUA). The EUA for this test is supported by the Display Director of Health and Human Service's declaration that [...] longer be used). Performed By: #### C [facility] #### [facility] [id number] Cami Quispe [facility] September 19, 2021 CRYSTAL ROSAS, [address] [place] [address] Re: JOAQUINA GARCIA Date of : 1970 Thank you for your referral of Joaquina Garcia who was seen on consultation for screening colonoscopy. I have enclosed my consultation note for your review. I will be happy to follow Joaquina. Sincerely, Joo Gonzalez MD General Surgery [facility] Consent for Procedure/Surger yon 09-11-2021 Consent for Procedure/Surgery [id number] 56#[id number]:127 Normal [facility] Physician Referralon 021 Physician Referral [id number] B2#1.00CD:127 Normal [facility] Vital Signs Date Time Vital Sign Value Performing Clinician Juliane thrasher 12-26-2023 15:20-0500 Body mass index (BMI) [Ratio] 33.15 kg/m2 Ekaterina PATTERSON Work Phone: [facility] 12-26-2023 15:20-0500 Body weight 98.88 kg Ekaterina PATTERSON Work Phone: [facility] 12-26-2023 15:20-0500 Diastolic blood pressure 74 mm[Hg] Ekaterina PATTERSON Work Phone: [facility] 12-26-2023 15:20-0500 Systolic blood pressure 122 mm[Hg] Ekaterina PATTERSON Work Phone: [facility] Encounters Encounter Date Encounter Type Care Provider Facility Start: 01-13-2024 End: 01-13-2024 ambulatory CRYSTAL AICHHOLZ Not Available Start: 12-26-2023 End: 12-26-2023 ambulatory EKATERINA DURÁN Not Available Start: 12-26-2023 End: 12-26-2023 Patient encounter procedure Ekaterina PATTERSON Work Phone: [facility] Work Phone: Start: 12-26-2023 End: 12-26-2023 Periodic preventive med est patient 40-64yrs Ekaterina PATTERSON Work Phone: [facility] Comment on above: Well woman exam with routine gynecological exam; Breast cancer screening by mammogram; Post menopausal syndrome; Age-related osteoporosis without current pathological fracture ([facility]); Amenorrhea Start: 12-26-2023 [facility] Result Encounter Crystal Alison HARVEST MANAGER Work Phone: [facility] External Department Unsolicited Start: 12-26-2023 [facility] Result Encounter Crystal Scottyholz HARVEST MANAGER Work Phone: [facility] External Department Unsolicited Start: 12-25-2023 Chart abstracting Ekaterina PATTERSON Work Phone: [facility] Start: 12-23-2023 Bamboo flowsheet Crystal Aichholz HARVEST MANAGER Work Phone: [facility] Start: 12-23-2023 Bamboo flowsheet Crystal Aichholz HARVEST MANAGER Work Phone: [facility] Start: 12-23-2023 End: 12-23-2023 ambulatory CRYSTAL AICHHOLZ Not Available Start: 11-21-2023 End: 11-21-2023 ambulatory CRYSTAL AICHHOLZ Not Available Start: 09-14-2022 End: 09-15-2022 ambulatory [place] Facility:[facility] Start: 04-12-2022 Encounter for genera l adult medical examination without abnormal findings [facility] Start: 04-05-2022 End: 04-06-2022 ambulatory [...] 12-26-2023 ALL C REACTIVE PROTEIN Crystal Alison HARVEST MANAGER Work Phone: Start: 12-26-2023 ALL URIC ACID Crystal Fajardo meggan HARVEST MANAGER Work Phone: Start: 06-13-2023 Mammography Crystal Louis ruddy HARVEST MANAGER Work Phone: Start: 11-01-2021 Colonoscopy Crystal Louis ruddy HARVEST MANAGER Work Phone: Plan of Treatment Date Care Activity Detail Author Start: 11-01-2031 Screening for malign ant neoplasm of colon [facility] Start: 08-20-2024 Screening for malign ant neoplasm of cervix [facility] Start: 06-13-2024 Screening for malign ant neoplasm of breast Mammogram [facility] Start: 01-13-2024 End: 01-13-2024 Patient encounter procedure 01/13/2024 1:00 PM EST Office Visit [facility] [address] [place] [phone] Crystal Rosas NP [address] [place] [address] [facility] Start: 01-02-2024 End: 01-02-2024 Patient encounter procedure 01/02/2024 8:50 AM EST Office Visit [facility] [address] [place] [phone] Ekaterina Durán PA [address] [place], [place] [id number] [facility] Start: 12-26-2023 End: 12-26-2023 Patient encounter procedure 12/26/2023 3:00 PM EST Office Visit [facility] [address] [place] [phone] Ekaterina Duárn PA [address] [place], [place] [id number] Well woman exam with routine gynecological exam [facility] Comment on above: Well woman exam with routine gynecological exam Start: 12-26-2023 End: 12-26-2024 DXA Skeletal system Views for bone density DEXA bone density Imaging Routine Post menopausal syndrome Age-related osteoporosis without current pathological fracture ([facility]) Expected: 12/26/2023 (Approximate), Expires: 12/26/2024 [facility] Comment on above: Expected: 12/26/2023 (Approximate), Expires: 12/26/2024 Start: 12-26-2023 End: 02-23-2025 MG Breast - bilateral Screening Bilateral screening mammogram Imaging Routine Breast cancer screening by mammogram Expected: 12/26/2023, Expires: 02/23/2025 [facility] Work Phone: Comment on above: Expected: 12/26/2023 , Expires: 02/23/2025 Start: 12-26-2023 End: 12-26-2024 US for US PELVIS-TRANSVAG IF INDICATED Imaging Routine Amenorrhea Expected: 12/26/2023 (Approximate), Expires: 12/26/2024 [facility] Comment on above: Expected: 12/26/2023 (Approximate), Expires: 12/26/2024 Start: 1992 Screening for malign ant neoplasm of cervix Pap Smear [facility] Start: 1971 Screening for malign ant neoplasm of colon [facility] CBC W Auto Different ial panel - Blood CBC and differential Lab Routine Amenorrhea Ordered: 12/26/2023 [facility] Comment on above: Ordered: 12/26/2023 hCG, quantitative, hCG, quantitative, Lab Routine Amenorrhea Ordered: 12/26/2023 [facility] Comment on above: Ordered: 12/26/2023 Hemoglobin A1c/Hemoglobin.total in Blood Hemoglobin A1c Lab Routine Amenorrhea Ordered: 12/26/2023 [facility] Comment on above: Ordered: 12/26/2023 Prolactin Prolactin Lab Ro utine Amenorrhea Ordered: 12/26/2023 [facility] Comment on above: Ordered: 12/26/2023 THIN PREP TIS PAP AN D HR HPV DNA THIN PREP TIS PAP AND HR HPV DNA Pathology and Cytology Routine Well woman exam with routine gynecological exam Ordered: 12/26/2023 [facility] Comment on above: Ordered: 12/26/2023 Thyrotropin [Units/volume] in Serum or Plasma TSH Lab Routine Amenorrhea Ordered: 12/26/2023 [facility] Comment on above: Ordered: 12/26/2023 Immunizations Immunization Date Immunization Notes Care Provider [facility]-2023 influenza virus vacc ine, whole virus Crystal Rosas HARVEST MANAGER Work Phone: [facility] Payers Date Payer Category Payer Unknown BCBS BCBS xxxxxx [id number] 2022-Present [phone] [address] [place] [address] [id number] 2022 Unknown [id number] 2019 Unknown [id number] 1971 Unknown [id number] 1971 Unknown [id number] 1971 Unknown [id number] 1971 Unknown [id number] 1971 Unknown [id number] 1971 Unknown [id number] 1971 Unknown [id number] 1971 Unknown [id number] 1971 Unknown [id number] Social History Date Type Detail Facility Start: 11-19-2023 Tobacco smoking status [facility] Never sm oked tobacco [facility] Start: [...] Healthcare How often do you att end catholic or taoism services? Patient refused [facility] Are you [...] Comment 1-2 drinks mon thly or less [facility] Start: 1970 Sex Assigned At Not on file N [facility] History of Present illness Narrative 12-26-2023 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, not intractable ([facility]) 10/21/2023 BMI 33.0-33.9,adult 11/21/2023 Pain and swelling of toe of right foot 12/23/2023 Cellulitis of toe of right foot 12/23/2023 Resolved Ambulatory Problems Diagnosis Date Noted Hyperlipidemia ([facility]) 12/23/2023 Past Medical History: Diagnosis Date Joint pain Migraine headache ([facility]) Family History Problem Relation Name Age of [...] nursing note reviewed. Exam conducted with a piano case and bench assembler present. Patient presents today for an annual [...] syndrome Age-related osteoporosis without current pathological fracture ([facility]) Patient presents today for an annual exam. 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, not intractable ([facility]) 10/21/2023 BMI 33.0-33.9,adult 11/21/2023 Pain and swelling of toe of right foot 12/23/2023 Cellulitis of toe of right foot 12/23/2023 Resolved Ambulatory Problems Diagnosis Date Noted Hyperlipidemia ([facility]) 12/23/2023 Past Medical History: Diagnosis Date Joint pain Migraine headache ([facility]) Family History Problem Relation Name Age of [...] syndrome Age-related osteoporosis without current pathological fracture ([facility]) Documented by Manjula Arthur MA on behalf of: LEONARDO Garcia documented in this encounter [facility] Clinical Note 11-01-2021 Note Date & Type [...] Recovery Room in good condition. cc:Crystal Rosas. [facility] Signed and Approved by: DR JOO GONZALEZ . 11/08/2021 08:02:00 [facility] Signed and Approved by: DR JOO GONZALEZ . 11/08/2021 08:02:00 [facility] Clinical Note 09-08-2021 Note Date & [...] plan colonoscopy under anesthesia, informed consent obtained. [facility] Comment on above: Result Comment: Elec tronically [...] section and content) DATE CREATED AUTHOR 11/09/2021 [facility] DATE CREATED AUTHOR AUTHOR'S ORGANIZ ATION 09/21/2022 [facility] DATE CREATED AUTHOR AUTHOR'S ORGANIZ ATION 01/14/2024 [facility] Care Teams (unrecognized sec tion and content) End Stapler Relationship Specialty Start Date End Date Everette Mullen MD PCP - General Family Medicine 05/07/23 Crystal Rosas NP [address] [place] [address] PCP - [place] [employer] 11/11/23 End Stapler Relationship Specialty Start Date End Date Everette Mullen MD PCP - General Family Medicine 05/07/23 Crystal Rosas NP [address] [place] [address] PCP - [place] [employer] 11/11/23 End Stapler Relationship Specialty Start Date End Date Everette Mullen MD PCP - General Family Medicine 05/07/23 Crystal Rosas NP [address] [place] [address] PCP - [place] [employer] 11/11/23 Reason for [...] BE BASED ON THE PRIMARY CLINICAL RECORDS. [facility] [employer] [facility]. provides no warranty or guarantee of the accuracy or completeness of information in this document.
== END 2024-03-13 10:54 | disposition home or self-care (01) ==
LOC: MRI 10:54
PROVIDERS: PCP Nurse Practitioner; Visit Provider Orthopaedic Surgery
DX: M25.512 Pain in left shoulder (principal); M75.112 Incomplete rotator cuff tear or rupture of left shoulder, not specified as traumatic
CPT/HCPCS: 73221

== ENCOUNTER 2024-03-23 11:43 | Day surgery (SDC) | payer BC, SELFPAY ==
[2024-03-11 15:10] VITALS: BP 122/78; PULSE 95; TEMP 36.4; O2SAT 98; BMI 35.8
[2024-03-23] VITALS (20 sets, daily range): BP systolic 95–148; BP diastolic 67–95; PULSE 69–106; TEMP 35.8–36.6; O2SAT 92–98; BMI 35.4
[2024-03-23 11:57] LABS: Basophils Percent Auto 0.6 % (0.2-2.0); Eosinophils Absolute Auto 0.2 10^3/uL (0.0-0.7); Eosinophils Percent Auto 3.4 % (0.9-7.0); Hemoglobin 14.2 g/dL (12.0-16.0); Immature Granulocytes Abs Auto 0.01 10^3/uL (0.00-0.03); Immature Granulocytes Pct Auto 0.2 % (0.0-0.5); Lymphocytes Absolute Auto 1.9 10^3/uL (1.2-3.8); Lymphocytes Percent Auto 35.1 % (20.5-60.0); Mean Corpuscular Hemoglobin 29.8 pg (26.7-34.0); Mean Corpuscular Volume 90.3 fL (81.0-99.0); Mean Platelet Volume 9.6 fL (9.5-13.5); Monocytes Absolute Auto 0.3 10^3/uL (0.3-0.8); Neutrophils Absolute Auto 2.9 10^3/uL (1.4-6.5); Neutrophils Percent Auto 54.7 % (43.0-75.0); Platelet Count 231 10^3/uL (150-450); Red Blood Count 4.76 10^6/uL (4.20-5.40); Red Cell Distribution Width 13.3 % (11.0-15.0); White Blood Count 5.3 10^3/uL (4.0-11.0)
--- OUTSIDE RECORDS SUMMARY | 2024-03-23 12:00 | XMS_ITS | CCD ---
Author Organization [facility] Care Team Providers Care Clinical Data Analyst Name Role Phone AICHHOLZ, COMMERCIAL APPRAISER CRYSTAL Admitting Unavailable AICHHOLZ, COMMERCIAL APPRAISER CRYSTAL Attending Unavailable AICHHOLZ, COMMERCIAL APPRAISER CRYSTAL Consulting Unavailable AICHHOLZ, COMMERCIAL APPRAISER CRYSTAL Primary Care Unavailable AICHHOLZ, COMMERCIAL APPRAISER CRYSTAL Primary Care Unavailable AICHHOLZ, COMMERCIAL APPRAISER CRYSTAL Admitting Unavailable AICHHOLZ, COMMERCIAL APPRAISER CRYSTAL Attending Unavailable AICHHOLZ, COMMERCIAL APPRAISER CRYSTAL Consulting Unavailable NILL, DR GE Attending Unavailable NILL, DR GE Consulting Unavailable NILL, DR GE Admitting Unavailable AICHHOLZ, COMMERCIAL APPRAISER CRYSTAL Primary Care Unavailable RAZIA MENDIETA Consulting Unavailable NILL, DR GE Admitting Unavailable NILL, DR GE Attending Unavailable AICHHOLZ, COMMERCIAL APPRAISER CRYSTAL Primary Care Unavailable LEONARDO DURÁN Attending Unavailable LEONARDO DURÁN Consulting Unavailable LEONARDO DURÁN Admitting Unavailable AICHHOLZ, COMMERCIAL APPRAISER CRYSTAL Primary Care Unavailable Everette Mullen MD Primary Care Provider [phone] Aichholz AQUATIC CENTRE MANAGER, Crystal Unavailable AICHHOLZ, CRYSTAL Attending Unavailable AICHHOLZ, CRYSTAL Attending Unavailable EKATERINA DURÁN Attending Unavailable AICHHOLZ, CRYSTAL Attending Unavailable Allergies Allergy Classification Reported Allergen(s) Allergy Type Date of Onset Reaction(s) Facility (2 sources) Adhesive agent Drug allergy (disorder) 06-08-2013 [facility] (1 source) Glycerin Drug Allergy 06-14-2013 [facility] (1 source) Leucine Drug Allergy [facility] (1 source) Aquasol A Drug allergy (disorder) [facility] Medications Current Medications Medication Drug [...] Resolved: 12-23-2023 Chronic Other aftercare (1 source) prison (current) use of aspirin; 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] Onset: 11-07-2021 Episodic Unclassified (1 source) CONTACT W/AND (SUSP) EXPOS COVID-19; 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: [CONTACT W/AND (SUSP) EXPOS COVID-19] Onset: 09-21-2021 Results Test Name Value Interpretation Reference Range Facility ALL C REACTIVE PROTEINon CRP [Mass/Vol] mg/L NINF - 0.50 mg/dL [facility] ALL URIC ACIDon 12-26-2023 Urate [Mass/Vol] 2.7 mg/dL 2.6 - 6.0 mg/dL [facility] No Panel Informationon 12-26 [facility] LIPID PROFILEon 09-14-2022 CHOL-HDL RATIO NORM SEE BELOW Normal [facility] Comment on above: Result Comment: 3.3 - 4.4 LOW RISK 4.4 - 7.1 AVERAGE RISK 7.1 - 11.0 MODERATE RISK >11.0 HIGH RISK Performed By: #### L IPID #### [facility] [address] [address] [address] Caim Quispe Cholesterol [Mass/Vol] 229 mg/dL Critically high <=200 [facility] Comment on above: Performed By: #### L IPID #### [facility] [address] [address] [address] Cami Quispe Cholesterol in HDL [Mass/Vol] 60 mg/dL Normal 40-60 [facility] Comment on above: Performed By: #### L IPID #### [facility] [address] [address] [address] Cami Quispe Cholesterol in LDL [Mass/Vol] 160.2 mg/dL Normal [facility] Comment on above: Performed By: #### L IPID #### [facility] [address] [address] [address] Cami Quispe Cholesterol.total/Ch olesterol in HDL [Mass ratio] 3.8 {ratio} Normal [facility] Comment on above: Performed By: #### L IPID #### [facility] [address] [place] [address] Dr. Cami Quispe HDL NORMAL > or = 60 mg/dl - LOW CARDIOVASCULAR RISK <40 mg/dl - HIGH CARDIOVASCULAR RISK Normal [facility] Comment on above: Performed By: #### L IPID #### [facility] [address] [address] [address] Cami Quispe LDL CALC NORMAL SEE BELOW Normal [facility] Comment on above: Result Comment: <100 mg/dl OPTIMAL 100 - 129 mg/dl NEAR OR ABOVE OPTIMAL 130 - 159 mg/dl BORDERLINE HIGH 160 - 189 mg/dl HIGH >190 mg/dl VERY HIGH Performed By: #### L IPID #### [facility] [address] [address] [address] Cami Quispe Triglyceride [Mass/Vol] 44 mg/dL Normal <=150 [facility] Comment on above: Performed By: #### L IPID #### [facility] [address] [place] [address] Dr. Cami Quispe VLDL CALC 8.8 mg/dL Normal [facility] Comment on above: Performed By: #### L IPID #### [facility] [address] [address] [address] Cami Quispe CBC AUTO DIFFon 04-05-2022 BASO # 0.0 103/ul Normal 0.0-0.1 [facility] Comment on above: Performed By: #### C BC #### [facility] [address] [place] [address] Dr. Cami Quispe Basophils/100 WBC (Bld) 0.6 % Normal 0.2-2.0 [facility] Comment on above: Performed By: #### C BC #### [facility] [address] [place] [address] Dr. Cami Quispe EO # 0.2 103/ul Normal 0.0-0.7 [facility] Comment on above: Performed By: #### C BC #### [facility] [address] [place] [address] Dr. Cami Quispe Eosinophils/100 WBC (Bld) 3.2 % Normal 0.9-7.0 [facility] Comment on above: Performed By: #### C BC #### [facility] [address] [place] [address] Dr. Cami Quispe Erythrocyte distribution width (RBC) [Ratio] 13.4 % Normal 11.0-15.0 [facility] Comment on above: Performed By: #### C BC #### [facility] [address] [place] [address] Dr. Cami Quispe Hematocrit (Bld) [Volume fraction] 47.9 % Normal 36.0-48.0 [facility] Comment on above: Performed By: #### C BC #### [facility] [address] [place] [address] Dr. Cami Quispe Hemoglobin (Bld) [Mass/Vol] 15.8 g/dL Normal 12.0-16.0 [facility] Comment on above: Performed By: #### C BC #### [facility] [address] [place] [address] Dr. Cami Quispe IG # 0.01 10e3/ul Normal 0.00-0.03 [facility] Comment on above: Performed By: #### C BC #### [facility] [address] [place] [address] Dr. Cami Quispe IG % 0.2 % Normal 0.0-0.5 [facility] Comment on above: Performed By: #### C BC #### [facility] [address] [place] [address] Dr. Cami Quispe LYMPH # 1.8 103/ul Normal 1.2-3.8 [facility] Comment on above: Performed By: #### C BC #### [facility] [address] [place] [address] Dr. Cami Quispe Lymphocytes/100 WBC (Bld) 29.6 % Normal 20.5-60.0 [facility] Comment on above: Performed By: #### C BC #### [facility] [address] [place] [address] Dr. Cami Quispe MANUAL DIFF REQ NO Normal [facility] Comment on above: Performed By: #### C BC #### [facility] [address] [place] [address] Dr. Cami Quispe MCH (RBC) [Entitic mass] 30.8 pg Normal 26.7-34.0 [facility] Comment on above: Performed By: #### C BC #### [facility] [address] [place] [address] Dr. Cami Quispe MCHC (RBC) [Mass/Vol] 33.0 g/dL Normal 29.9-35.2 [facility] Comment on above: Performed By: #### C BC #### [facility] [address] [place] [address] Dr. Cami Quispe MCV (RBC) [Entitic vol] 93.4 fL Normal 81.0-99.0 [facility] Comment on above: Performed By: #### C BC #### [facility] [address] [place] [address] Dr. Cami Quispe MONO # 0.5 103/ul Normal 0.3-0.8 [facility] Comment on above: Performed By: #### C BC #### [facility] [address] [place] [address] Dr. Cami Quispe Monocytes/100 WBC (Bld) 7.4 % Normal 1.7-12.0 [facility] Comment on above: Performed By: #### C BC #### [facility] [address] [address] [address] Cami Quispe NEUT # 3.7 103/ul Normal 1.4-6.5 [facility] Comment on above: Performed By: #### C BC #### [facility] [address] [address] [address] Cami Quispe Neutrophils/100 WBC (Bld) 59.0 % Normal 43.0-75.0 [facility] Comment on above: Performed By: #### C BC #### [facility] [address] [address] [address] Cami Quispe Platelet mean volume (Bld) [Entitic vol] 9.6 fL Normal 9.5-13.5 [facility] Comment on above: Performed By: #### C BC #### [facility] [address] [place] [address] Dr. Cami Quispe PLT 294 103/ul Normal 150-450 [facility] Comment on above: Performed By: #### C BC #### [facility] [address] [address] [address] Cami Quispe RBC 5.13 106/ul Normal 4.20-5.40 [facility] Comment on above: Performed By: #### C BC #### [facility] [address] [place] [address] Dr. Cami Quispe WBC 6.2 103/ul Normal 4.0-11.0 [facility] Comment on above: Performed By: #### C BC #### [facility] [address] [place] [address] Dr. Cami Quispe GLYCOHEMOGLOBIN A1Con 2021 ADA RECOMMENDATION SEE BELOW Normal [facility] Comment on above: Result Comment: ADA RECOMMENDED LIMIT 4.0 - 6.0 ADA THERAPEUTIC TARGET < 7.0 ACTION SUGGESTED > 7.0 Performed By: #### A 1C #### [facility] [address] [place] [address] Dr. Cami Quispe Glucose [Mass/Vol] 91 mg/dL Normal [facility] Comment on above: Performed By: #### A 1C #### [facility] [address] [address] [address] Cami Quispe HbA1c (Bld) [Mass fraction] 4.8 % Normal 4.5-6.2 [facility] Comment on above: Performed By: #### A 1C #### [facility] [address] [address] [address] Cami Quispe LIPID PROFILEon 04-05-2022 CHOL-HDL RATIO NORM SEE BELOW Normal [facility] Comment on above: Result Comment: 3.3 - 4.4 LOW RISK 4.4 - 7.1 AVERAGE RISK 7.1 - 11.0 MODERATE RISK >11.0 HIGH RISK Performed By: #### L IPID, CMP, TSH #### [facility] [address] [address] [address] Cami Quispe Cholesterol [Mass/Vol] 255 mg/dL Critically high <=200 [facility] Comment on above: Performed By: #### L IPID, CMP, TSH #### [facility] [address] [address] [address] Cami Quispe Cholesterol in HDL [Mass/Vol] 68 mg/dL Critically high 40-60 [facility] Comment on above: Performed By: #### L IPID, CMP, TSH #### [facility] [address] [address] [address] Cami Quispe Cholesterol in LDL [Mass/Vol] 176.8 mg/dL Normal [facility] Comment on above: Performed By: #### L IPID, CMP, TSH #### [facility] [address] [address] [address] Cami Quispe Cholesterol.total/Ch olesterol in HDL [Mass ratio] 3.8 {ratio} Normal [facility] Comment on above: Performed By: #### L IPID, CMP, TSH #### [facility] [address] [address] [address] Cami Quispe HDL NORMAL > or = 60 mg/dl - LOW CARDIOVASCULAR RISK <40 mg/dl - HIGH CARDIOVASCULAR RISK Normal [facility] Comment on above: Performed By: #### L IPID, CMP, TSH #### [facility] [address] [address] [address] Cami Quispe LDL CALC NORMAL SEE BELOW Normal [facility] Comment on above: Result Comment: <100 mg/dl OPTIMAL 100 - 129 mg/dl NEAR OR ABOVE OPTIMAL 130 - 159 mg/dl BORDERLINE HIGH 160 - 189 mg/dl HIGH >190 mg/dl VERY HIGH Performed By: #### L IPID, CMP, TSH #### [facility] [address] [address] [address] Cami Quispe Triglyceride [Mass/Vol] 51 mg/dL Normal <=150 [facility] Comment on above: Performed By: #### L IPID, CMP, TSH #### [facility] [address] [address] [address] Cami Quispe VLDL CALC 10.2 mg/dL Normal [facility] Comment on above: Performed By: #### L IPID, CMP, TSH #### [facility] [address] [address] [address] Cami Quispe PROF 14(COMP METB)on 022 Albumin [Mass/Vol] 4.3 g/dL Normal 3.4-5.0 [facility] Comment on above: Performed By: #### L IPID, CMP, TSH #### [facility] [address] [address] [address] Cami Quispe Albumin/Globulin [Mass ratio] 1.2 {ratio} Normal [facility] Comment on above: Performed By: #### L IPID, CMP, TSH #### [facility] [address] [address] [address] Cami Quispe ALP [Catalytic activity/Vol] 74 U/L Normal 46-116 [facility] Comment on above: Performed By: #### L IPID, CMP, TSH #### [facility] [address] [address] [address] Cami Quispe ALT [Catalytic activity/Vol] 28 U/L Normal 14-59 [facility] Comment on above: Performed By: #### L IPID, CMP, TSH #### [facility] [address] [address] [address] Cami Quispe Anion gap [Moles/Vol] 11.8 mmol/L Normal [facility] Comment on above: Performed By: #### L IPID, CMP, TSH #### [facility] [address] [address] [address] Cami Quispe AST [Catalytic activity/Vol] 16 U/L Normal 15-37 [facility] Comment on above: Performed By: #### L IPID, CMP, TSH #### [facility] [address] [address] [address] Cami Quispe Bilirubin [Mass/Vol] 1.0 mg/dL Normal 0.2-1.0 [facility] Comment on above: Performed By: #### L IPID, CMP, TSH #### [facility] [address] [address] [address] Cami Quispe Calcium [Mass/Vol] 9.2 mg/dL Normal 8.5-10.1 [facility] Comment on above: Performed By: #### L IPID, CMP, TSH #### [facility] [address] [address] [address] Cami Quispe Chloride [Moles/Vol] 102 mmol/L Normal 98-107 [facility] Comment on above: Performed By: #### L IPID, CMP, TSH #### [facility] [address] [address] [address] Cami Quispe CO2 [Moles/Vol] 26.4 mmol/L Normal 21.0-32.0 [facility] Comment on above: Performed By: #### L IPID, CMP, TSH #### [facility] [address] [address] [address] Cami Quispe Creatinine [Mass/Vol] 0.77 mg/dL Normal 0.55-1.02 [facility] Comment on above: Performed By: #### L IPID, CMP, TSH #### [facility] [address] [address] [address] Cami Quispe EGFR-AF ANGOLAN >60 Normal >=60 [facility] Comment on above: Performed By: #### L IPID, CMP, TSH #### [facility] [address] [address] [address] Cami Quispe EGFR-NON AF ANGOLAN >60 Normal >=60 [facility] Comment on above: Performed By: #### L IPID, CMP, TSH #### [facility] [address] [address] [address] Cami Quispe Globulin (S) [Mass/Vol] 3.7 g/dL Normal [facility] Comment on above: Performed By: #### L IPID, CMP, TSH #### [facility] [address] [address] [address] Cami Quispe Glucose [Mass/Vol] 92 mg/dL Normal 74-106 [facility] Comment on above: Performed By: #### L IPID, CMP, TSH #### [facility] [address] [place] [address] Dr. Cami Quispe Potassium [Moles/Vol] 4.2 mmol/L Normal 3.5-5.1 [facility] Comment on above: Performed By: #### L IPID, CMP, TSH #### [facility] [address] [place] [address] Dr. Cami Quispe Protein [Mass/Vol] 8.0 g/dL Normal 6.4-8.2 [facility] Comment on above: Performed By: #### L IPID, CMP, TSH #### [facility] [address] [address] [address] Cami Quispe Sodium [Moles/Vol] 136 mmol/L Normal 136-145 [facility] Comment on above: Performed By: #### L IPID, CMP, TSH #### [facility] [address] [place] [address] Dr. Cami Quispe Urea nitrogen [Mass/Vol] 14.0 mg/dL Normal 7.0-18.0 [facility] Comment on above: Performed By: #### L IPID, CMP, TSH #### [facility] [address] [place] [address] Dr. Cami Quispe Urea nitrogen/Creatinine [Mass ratio] 18.2 mg/mg Normal [facility] Comment on above: Performed By: #### L IPID, CMP, TSH #### [facility] [address] [address] [address] Cami Quispe TSHon 04-05-2022 TSH 2.255 uIU/mL Normal 0.358-3.740 [facility] Comment on above: Performed By: #### L IPID, CMP, TSH #### [facility] [address] [address] [address] Cami Quispe TSH RANGE SEE BELOW Normal [facility] Comment on above: Result Comment: <0.3 4 UIU/ml HYPERTHYROID 0.34-5.60 UIU/ml EUTHYROID >5.60 UIU/ml HYPOTHYROID Performed By: #### L IPID, CMP, TSH #### [facility] [address] [address] [address] Cami Quispe Outside Colonoscopyon 2020 Outside Colonoscopy [id number] 09#1.00CD:127 Normal [facility] Reminderson 11-02-2021 Reminders -- From: Cindi Figueroa LPN To: GSN - Clinical; Sent: 11/02/2021 14:42:12 EST Show up: 10/02/2031 08:00:00 EST Subject: colonoscopy recall Due Date/Time: 11/01/2031 08:00:00 EST Reminder/Recall Patient is due for screening colonoscopy 11/01/2031. Normal [facility] PREG HCG QUALon 11-01-2021 , QUAL Negative Normal NEGATIVE [facility] Comment on above: Performed By: #### P REG #### [facility] [address] [place] [address] Dr. Cami Quispe [facility]11 SARS-CoV-2 (COVID-19) RNA LOAN+probe Ql (Unsp spec) Detected Critically abnormal NOT DETECTED [facility] Comment on above: Result Comment: This test is not yet approved or cleared by the [place] FDA. When there are no FDA-approved or cleared tests available, and other criteria are met, FDA can make tests available under an emergency access mechanism called an Emergency Use Authorization (EUA). The EUA for this test is supported by the Neonatal Pediatric Nurse of Health and Human Service's declaration that [...] used). Performed By: #### C [facility] #### [facility] [id number] Cami Quis[facility] September 19, 2021 CRYSTAL ROSAS, [address] [place] [address] Re: JOAQUINA GARCIA Date of : 1970 Thank you for your referral of Joaquina Garcia who was seen on consultation for screening colonoscopy. I have enclosed my consultation note for your review. I will be happy to follow Joaquina. Sincerely, Joo Gonzalez MD General Surgery [facility] Consent for Procedure/Surger yon 09-11-2021 Consent for Procedure/Surgery [id number] 56#[id number]:127 Normal [facility] Physician Referralon 021 Physician Referral [id number] B2#[id number]:127 Normal [facility] Vital Signs Date Time Vital Sign Value Performing Clinician Juliane thrasher 12-26-2023 15:20-0500 Body mass index (BMI) [Ratio] 33.15 kg/m2 Ekaterina PATTERSON Work Phone: [facility] 12-26-2023 15:20-0500 Body weight 98.88 kg Ekaterina PATTERSON Work Phone: [facility] 12-26-2023 15:20-0500 Diastolic blood pressure 74 mm[Hg] Ekaterina PATTERSON Work Phone: [facility] 12-26-2023 15:20-0500 Systolic blood pressure 122 mm[Hg] Ekaterina PATTERSON Work Phone: [facility] Encounters Encounter Date Encounter Type Care Provider Facility Start: 01-13-2024 End: 01-13-2024 ambulatory CRYSTAL AICHHOLZ Not Available Start: 12-26-2023 End: 12-26-2023 ambulatory EKATERINA DURÁN Not Available Start: 12-26-2023 End: 12-26-2023 Patient encounter procedure Ekaterina PATTERSON Work Phone: [facility] Work Phone: Start: 12-26-2023 End: 12-26-2023 Periodic preventive med est patient 40-64yrs Ekaterina PATTERSON Work Phone: [facility] Comment on above: Well woman exam with routine gynecological exam; Breast cancer screening by mammogram; Post menopausal syndrome; Age-related osteoporosis without current pathological fracture ([facility]); Amenorrhea Start: 12-26-2023 [facility] Result Encounter Crystal Alison [employer] MANAGER Work Phone: [facility] External Department Unsolicited Start: 12-26-2023 [facility] Result Encounter Crystal Scottyholz A[employer] C[employer]RE MANAGER Work Phone: [facility] External Department Unsolicited Start: 12-25-2023 Chart abstracting Ekaterina PATTERSON Work Phone: [facility] Start: 12-23-2023 Bamboo flowsheet Crystal Aichholz A[employer]IC C[employer]RE MANAGER Work Phone: [facility] Start: 12-23-2023 Bamboo flowsheet Crystal Aichholz A[employer]ATIC C[employer]RE MANAGER Work Phone: [facility] Start: 12-23-2023 End: 12-23-2023 ambulatory CRYSTAL AICHHOLZ Not Available Start: 11-21-2023 End: 11-21-2023 ambulatory CRYSTAL AICHHOLZ Not Available Start: 09-14-2022 End: 09-15-2022 ambulatory [place] Facility:[facility] Start: 04-12-2022 Encounter for genera l adult medical examination without abnormal findings MARIANA RUVALCABA YAKELINTequilaPHIL[place] [facility] Start: 04-05-2022 End: 04-06-2022 [...] 12-26-2023 ALL C REACTIVE PROTEIN Crystal Alison [employer] MANAGER Work Phone: Start: 12-26-2023 ALL URIC ACID Crystal Fajardo meggan [employer] MANAGER Work Phone: Start: 06-13-2023 Mammography Crystal Louis ruddy [employer] MANAGER Work Phone: Start: 11-01-2021 Colonoscopy Crystal Louis ruddy A[employer]IC C[employer]RE MANAGER Work Phone: Plan of Treatment Date Care Activity Detail Author Start: 11-01-2031 Screening for malign ant neoplasm of colon [facility] Start: 08-20-2024 Screening for malign ant neoplasm of cervix [facility] Start: 06-13-2024 Screening for malign ant neoplasm of breast Mammogram [facility] Start: 01-13-2024 End: 01-13-2024 Patient encounter procedure 01/13/2024 1:00 PM EST Office Visit [facility] [address] [place] [phone] Crystal Rosas NP [address] [place] [address] [facility] Start: 01-02-2024 End: 01-02-2024 Patient encounter procedure 01/02/2024 8:50 AM EST Office Visit [facility] [address] [place] [phone] Ekaterina Durán PA [address] [place], [place] [id number] [facility] Start: 12-26-2023 End: 12-26-2023 Patient encounter procedure 12/26/2023 3:00 PM EST Office Visit [facility] [address] [place] [phone] Ekaterina Durán PA [address] [place], [place] [id number] Well woman exam with routine gynecological exam [facility] Comment on above: Well woman exam with routine gynecological exam Start: 12-26-2023 End: 12-26-2024 DXA Skeletal system Views for bone density DEXA bone density Imaging Routine Post menopausal syndrome Age-related osteoporosis without current pathological fracture ([facility]) Expected: 12/26/2023 (Approximate), Expires: 12/26/2024 [facility] Comment on above: Expected: 12/26/2023 (Approximate), Expires: 12/26/2024 Start: 12-26-2023 End: 02-23-2025 MG Breast - bilateral Screening Bilateral screening mammogram Imaging Routine Breast cancer screening by mammogram Expected: 12/26/2023, Expires: 02/23/2025 [facility] Work Phone: Comment on above: Expected: 12/26/2023 , Expires: 02/23/2025 Start: 12-26-2023 End: 12-26-2024 US for US PELVIS-TRANSVAG IF INDICATED Imaging Routine Amenorrhea Expected: 12/26/2023 (Approximate), Expires: 12/26/2024 [facility] Comment on above: Expected: 12/26/2023 (Approximate), Expires: 12/26/2024 Start: 1992 Screening for malign ant neoplasm of cervix Pap Smear [facility] Start: 1971 Screening for malign ant neoplasm of colon [facility] CBC W Auto Different ial panel - Blood CBC and differential Lab Routine Amenorrhea Ordered: 12/26/2023 [facility] Comment on above: Ordered: 12/26/2023 hCG, quantitative, hCG, quantitative, Lab Routine Amenorrhea Ordered: 12/26/2023 [facility] Comment on above: Ordered: 12/26/2023 Hemoglobin A1c/Hemoglobin.total in Blood Hemoglobin A1c Lab Routine Amenorrhea Ordered: 12/26/2023 [facility] Comment on above: Ordered: 12/26/2023 Prolactin Prolactin Lab Ro utine Amenorrhea Ordered: 12/26/2023 [facility] Comment on above: Ordered: 12/26/2023 THIN PREP TIS PAP AN D HR HPV DNA THIN PREP TIS PAP AND HR HPV DNA Pathology and Cytology Routine Well woman exam with routine gynecological exam Ordered: 12/26/2023 [facility] Comment on above: Ordered: 12/26/2023 Thyrotropin [Units/volume] in Serum or Plasma TSH Lab Routine Amenorrhea Ordered: 12/26/2023 [facility] Comment on above: Ordered: 12/26/2023 Immunizations Immunization Date Immunization Notes [facility] influenza virus vacc ine, whole virus Crystal Rosas [employer] Work Phone: [facility] Payers Date Payer Category Payer Unknown BCBS BCBS xxxxxx [id number] 2022-Present [phone] [address] [place] [address] [id number] 2022 Unknown [id number] 2019 Unknown [id number] 1971 Unknown [id number] 1971 Unknown [id number] 1971 Unknown [id number] .[id number] 1971 Unknown [id number] 1971 Unknown [id number] 1971 Unknown [id number] 1971 Unknown [id number] 1971 Unknown [id number] 1971 Unknown [id number] Social History Date Type Detail Facility Start: 11-19-2023 Tobacco smoking status WAIS Never sm oked tobacco [facility] Start: [...] Healthcare How often do you att end jewish or amish services? 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 Exam conducted with a car unloader helper present. Patient presents today for an annual [...] syndrome Age-related osteoporosis without current pathological fracture ([facility]) Patient presents today for an annual exam. 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, not intractable ([facility]) 10/21/2023 BMI 33.0-33.9,adult 11/21/2023 Pain and swelling of toe of right foot 12/23/2023 Cellulitis of toe of right foot 12/23/2023 Resolved Ambulatory Problems Diagnosis Date Noted Hyperlipidemia ([facility]) 12/23/2023 Past Medical History: Diagnosis Date Joint pain Migraine headache ([facility]) Family History Problem Relation Name Age of [...] syndrome Age-related osteoporosis without current pathological fracture ([facility]) Documented by Manjula Arthur MA on behalf of: LEONARDO Garcia documented in this encounter [facility] Clinical Note 11-01-2021 Note Date [...] Recovery Room in good condition. cc:Crystal Rosas. [facility] Signed and Approved by: DR JOO GONZALEZ . 11/08/2021 08:02:00 [facility] Signed and Approved by: DR JOO GONZALEZ . 11/08/2021 08:02:00 [facility] Clinical Note 09-08-2021 Note Date & [...] plan colonoscopy under anesthesia, informed consent obtained. [facility] Comment on above: Result Comment: Elec tronically [...] section and content) DATE CREATED AUTHOR 11/09/2021 [facility] DATE CREATED AUTHOR AUTHOR'S ORGANIZ ATION 09/21/2022 [facility] DATE CREATED AUTHOR AUTHOR'S ORGANIZ ATION 01/14/2024 [facility] Care Teams (unrecognized sec tion and content) Clinical Data Analyst Relationship Specialty Start Date End Date Everette Mullen MD PCP - General Family Medicine 05/07/23 Crystal Rosas NP [address] [place] [address] PCP - [employer] 11/11/23 Clinical Data Analyst Relationship Specialty Start Date End Date Everette Mullen MD PCP - General Family Medicine 05/07/23 Crystal Rosas NP [address] [place] [address] PCP - [employer] 11/11/23 Clinical Data Analyst Relationship Specialty Start Date End Date Everette Mullen MD PCP - General Family Medicine 05/07/23 Crystal Rosas NP [address] [place] [address] PCP - [employer] 11/11/23 Reason for [...] BE BASED ON THE PRIMARY CLINICAL RECORDS. [facility] [employer] [facility]. provides no warranty or guarantee of the accuracy or completeness of information in this document.
[2024-03-23] MEDS: LACTATED RINGER'S SOLUTION 1,000 ML 50 ML IV ×2 (12:23→15:36)
--- NOTE | 2024-03-23 13:29 | PC.NURSE ---
1307 Patient was consented for nerve block and a Time out was completed. Patient positioned with monitors on and O2 in place per protocol. Block started at 1309 and ended at 1313. Patient tolerated well. Patient remains on monitors and O2 until taken to OR. Spouse at bedside at this time.
--- NOTE | 2024-03-23 13:36 | P.ORPRC_ITS ---
Procedure Note Date of procedure: 03/23/24 Pre-op diagnosis: Right shoulder rotator cuff tear Post-op diagnosis: same as pre-op Procedure: Operation performed: Right shoulder arthroscopic rotator cuff repair Operative procedure After informed consent was obtained the patient brought to the operating room where general anesthetic was administered. Preoperatively regional block was placed. Patient was placed in the beachchair position. Exam under anesthesia of the right shoulder revealed 90 degrees forward flexion and no instability. Gentle manipulation was performed and full forward flexion was easily achieved. The right shoulder was prepped and draped in the usual sterile fashion. Diagnostic arthroscopy was performed the standard anterior, posterior, and lateral arthroscopy portals. Findings included a biceps tendon which was intact without any tearing. Labrum was intact circumferentially. Articular cartilage of the glenohumeral joint was intact. Subscapularis tendon was intact. There was a full-thickness retracted tear of the supraspinatus to the glenoid. Cuff grasper was utilized and there was significant tension on the supraspinatus tendon however it could be pulled back to the greater tuberosity with significant tension. Infraspinatus was intact. Axillary recess had no loose bodies. Arthroscope was introduced in the subacromial space. There was mild bursal inflammation which was removed the arthroscopic shaver. The greater tuberosity where the rotator cuff and torn from was debrided down to bleeding bed of bone. 1 Arthrex fiber tape and 1 Arthrex suture tape were placed in an inverted horizontal mattress fashion 1 anterior and 1 posterior in the torn supraspinatus tendon. Next through an accessory portal the punch was used to create a rn field case manager hole for the anchor. Bone was extremely soft. Sutures were then attached to the 4.75 bio composite swivel lock the swivel lock was introduced into the bone and with this anchor pulled through the bone. The anchor was removed and then the punch was utilized to create a rn field case manager hole along the lateral side of the greater tuberosity. Sutures were then again passed to the 4.75 swivel lock and these were secured to the bone but again significant tension was on the repair. The most anterior aspect of the supraspinatus was still slightly off of the bone and a 4.7 5 suture anchor was placed more anteriorly on the lateral aspect of the greater tuberosity. Vigilent suture passer was then used to pass 2 sutures through the anterior edge of the supraspinatus tendon. These were then tied in a simple fashion repairing the rest of the supraspinatus tendon back down to the bone. Shoulder was drained of arthroscopy fluid. Portals were closed with a nylon suture. Sterile dressing was placed. UltraSling was placed. Patient was awakened and brought to the recovery room in stable condition. There were no intraoperative or immediate postoperative complications. Anesthesia: GETA and regional Surgeon: Zhang Kim Pathology: none sent Condition: stable Disposition: PACU
[2024-03-23] MEDS: CEFAZOLIN SODIUM/DEXTROSE,ISO 2 GM/50 ML PIGGYBACK IV ×2 (13:38→15:55)
[2024-03-23] MEDS: EPINEPHRINE HCL PF 1 MG/ML AMPULE 4 MG IO (17:07)
[2024-03-23] MEDS: OXYCODONE HCL/ACETAMINOPHEN 5MG/325MG 2 TAB PO (18:25)
[2024-03-23] MEDS: ONDANSETRON 4 MG RAPDIS TABLET SL (19:05)
== END 2024-03-23 19:30 | disposition home or self-care (01) ==
PROVIDERS: PCP Nurse Practitioner; Visit Provider Orthopaedic Surgery
PROC: (CPT 1630; principal; 2024-03-23 13:00)
DX: S46.011A Strain of muscle(s) and tendon(s) of the rotator cuff of right shoulder, initial encounter (principal); F32.A Depression, unspecified; Z86.16 Personal history of COVID-19; Z78.0 Asymptomatic menopausal state; Z90.721 Acquired absence of ovaries, unilateral; Z90.49 Acquired absence of other specified parts of digestive tract; Z79.82 Long term (current) use of aspirin; X58.XXXA Exposure to other specified factors, initial encounter
CPT/HCPCS: 01630; 29827; 36415; 64415; 85025; C1713; J1094; J2704

== ENCOUNTER 2025-09-02 13:54 | Outpatient (OUT) | payer BC, SELFPAY ==
--- OUTSIDE RECORDS SUMMARY | 2025-09-02 14:03 | XMS_ITS | CCD ---
Author Organization [facility] Care Team Providers Care Joy Operator Name Role Phone AICHHOLZ, COLLEGE ATHLETE CRYSTAL Admitting Unavailable AICHHOLZ, COLLEGE ATHLETE CRYSTAL Attending Unavailable AICHHOLZ, COLLEGE ATHLETE CRYSTAL Consulting Unavailable AICHHOLZ, COLLEGE ATHLETE CRYSTAL Primary Care Unavailable AICHHOLZ, COLLEGE ATHLETE CRYSTAL Primary Care Unavailable AICHHOLZ, COLLEGE ATHLETE CRYSTAL Admitting Unavailable AICHHOLZ, COLLEGE ATHLETE CRYSTAL Attending Unavailable AICHHOLZ, COLLEGE ATHLETE CRYSTAL Consulting Unavailable NILL, DR GE Attending Unavailable NILL, DR GE Consulting Unavailable NILL, DR GE Admitting Unavailable AICHHOLZ, COLLEGE ATHLETE CRYSTAL Primary Care Unavailable RAZIA MENDIETA Consulting Unavailable NILL, DR GE Admitting Unavailable NILL, DR GE Attending Unavailable AICHHOLZ, COLLEGE ATHLETE CRYSTAL Primary Care Unavailable LEONARDO DURÁN Attending Unavailable LEONARDO DURÁN Consulting Unavailable LEONARDO DURÁN Admitting Unavailable AICHHOLZ, COLLEGE ATHLETE CRYSTAL Primary Care Unavailable Sebas BRADLEY, Everette Primary Care Provider Aichholz TOLL TRANSMISSION WORKER, Crystal Unavailable AICHHOLZ, CRYSTAL Attending Unavailable AICHHOLZ, CRYSTAL Attending Unavailable EKATERINA DURÁN Attending Unavailable AICHHOLZ, CRYSTAL Attending Unavailable Aichholz TOLL TRANSMISSION WORKER, Crystal Unavailable Everette Mullen MD Primary Care Provider Aichholz TOLL TRANSMISSION WORKER, Crystal Unavailable Aichholz TOLL TRANSMISSION WORKER-C, Crystal J Attending Provider Everette Mullen MD Primary Care Provider [phone] Allergies Allergy ClassificationReported Allergen(s)Allergy TypeDate of OnsetReaction(s) Facility (2 sources)Adhesive agentDrug allergy (disorder)53-66-4332Ikz [facility] Repository (1 source)GlycerinDrug Bcabbxr81-47-3968Vjc [facility] Rep[facility] (1 source)LeucineDrug AllergyThe [facility] (1 source)Aquasol ADrug allergy (disorder)[facility] Medications Current Medications MedicationDrug Class(es)DatesSig (Normalized)Sig (Original)aspirin 81 mg chewable tablet (12 sources)Platelet Aggregation Inhibitor, Nonsteroidal Anti-inflammatory Drug Start: 82-75-0255pndq 1 tablet by mouth once dailyAspirin (Aspirin Childrens) 81 mg tablet,chewable Active 81 MG PO Daily August 01, 2025 12:00am Complies with drug therapytake 1 tablet by mouth in the morningaspirin 81 MG EC tablet Take 81 mg by mouth in the morning. Activecephalexin 500 mg oral capsule (4 sources)Cephalosporin AntibacterialStart: 12-23-2023 End: 94-97-5248fajf 1 capsule by mouth in the morningcephalexin (Keflex) 500 MG capsule Indications: Cellulitis of toe of right foot Take 1 capsule (500mg) by mouth in the morning and 1 capsule (500 mg) before bedtime. Do all this for 10 days. 20 capsule 0 12/23/2023 01/02/2024 Activecholecalciferol 0.025 mg oral tablet (12 sources)Vitamin DStart: 06-17-4792hwof 1 tablet by mouth once daily Cholecalciferol (Vitamin D3) 25 mcg (1,000 unit) tablet Active 25 MCG PO Daily August 012:00am Complies with drug therapytake 1 capsule by mouth in the morningcholecalciferol (Vitamin D-3) 25 MCG (1000 UT) capsule Take 1,000 Units by mouth in the morning. ActiveDULoxetine 30 mg delayed release oral capsule (14 sources)Serotonin and Norepinephrine Reuptake InhibitorStart: 12-23-2024 End: 13-70-0398xhwe 1 capsule by mouth once dailyDuloxetine 30 mg capsule,delayed release(DR/EC) Active 30 MG PO Daily August 01, 2025 12:00am Complies with drug therapyStart: 11-27-2023 End: 86-56-6689nirk 1 capsule by mouth in the morningDULoxetine (Cymbalta) [address] capsule Indications: Chronic migraine without aura without status buzz rainosus, not intractable (CMS/HCC) Take 1 capsule (30 mg) by mouth in the morning. Do not crush orchew.. 90 capsule 1 11/27/2023 02/25/2024 Active1 ml galcanezumab-gnlm 120 mg/ml auto-injector (8 sources)Start: 11-27-2023 End: 31-63-7806dlowcfxlicim (Emgality) 120 MG/ML auto-injector Indications: Chronic migraine without aura without status migrainosus, not intractable (CMS/HCC) Inject 1 Syringe (120 mg) under the skin every 30 (thirty) days 3 each 02/26/2025 05/27/2025 ActiveMagnesium (12 sources)Start: 35-52-4338ltaz 1 tablet by mouth once dailyMagnesium 200 mg tablet Active 200 MG PO Daily August 01, 2025 12:00am Complies with drug therapytake 2 tablets by mouth once dailymagnesium 200 MG tablet Take 400 mg by mouth 1 (one) time each day Activetake 2 tablets by mouth once dailymagnesium 200 MG tablet Take 400 mg by mouth 1 (one) time each day 0 Active1 ml medroxyPROGESTERone acetate 150 mg/ml injection (5 sources)ProgestinStart: 04-02-2023 End: 00-53-5638hrjvcarZCBFVTOGEgfh (Depo-Provera) injection 150 mgmeloxicam 15 mg oral tablet (14 sources)Nonsteroidal Anti-inflammatory DrugStart: 12-23-2024 End: 91-85-6783rnok 1 tablet by mouth once dailyMeloxicam 15 mg tablet Active 15 MG PO Daily August 01, 2025 12:00am Complies with drug therapytake 1 tablet by mouth in the morningmeloxicam (Mobic) 15 MG tablet Take 15 mg by mouth in the morning. 0 Activespironolactone 100 mg oral tablet (7 sources)Aldosterone AntagonistStart: 42-86-5208fnss 1 tablet by mouth once dailySpironolactone (Aldactone) 100 mg tablet Active 100 MG PO Daily August 01, 2025 12:00am Complies with drug therapytake 1 tablet by mouth once daily spironolactone (Aldactone) 100 MG tablet Take 100 mg by mouth Daily Active SUMAtriptan 100 mg oral tablet (11 sources)Serotonin-1b and Serotonin-1d Receptor AgonistStart: 93-28-5050trxh 1 tablet by mouth every two hoursSumatriptan Succinate (Imitrex) 100 mg tablet Active 0 PO .COMPLEX August 01, 2025 12:00am take 1 tab at onset of headache; if no relief, may repeat 1 tab after at least 2 hrs; max = 2 tabs/24 hrs PO Complies with drug therapyStart: 12-03-2023 End: 17-48-5390GHNEbgixfyg (Imitrex) 100 MG tablet Indications: Chronic migraine without aura without status migrainosus, not intractable Take 1 tablet (100 mg) by mouth 1 (one) time if needed for migraine Take 1 pill at the onset of migraine BRYAN, may repeat in 2 hours if needed. No more than 2 pills in 24 hours, no more than twice a week 27 tablet 1 12/03/2023 Active Problems Active Problems Problem ClassificationProblemDateDocumented DateEpisodic/ChronicDigestive congenital anomalies (1 source)Other specified congenital malformations of intestine; 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: [OTH SPEC CONGEN MALFORM INTESTINE]Onset: 78-78-5334EtvpttyVyhmyjyr; including migraine (16 sources)Migraine without aura, not refractory ; 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: [Chronic migraine without aura, not intractable, without status migrainosus]Onset: 483757-99-7334GxbdyxlIlzczsklmslfd and screening for infectious disease (7 sources)Anti-nuclear factor positive; 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: [Other specified abnormal immunological findings in serum]Onset: 625146-78-8283CdivgpqfMteridgeey disorders (2 sources)Disorder associated with menstruation AND/OR menopause; 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: [Menopausal and female climacteric states]64-77-2697TsxpbjeElrdsyhrs disorders (2 sources)Amenorrhea; 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: [Amenorrhea, unspecified]46-02-1160Chheqit Osteoporosis (2 sources)Senile osteoporosis; 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: [Age-related osteoporosis without current pathological fracture]17-91-3496XzgnzhaTxrrn non-traumatic joint disorders (9 sources)Joint pain; 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: [Pain in unspecified joint]Onset: 377202-54-8327PrpmvalbIimfq nutritional; endocrine; and metabolic disorders (11 sources)Body mass index 30+ - obesity; 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: [Body mass index (BMI) 33.0-33.9, adult]Onset: 073898-11-5075HgssprdHbnvg screening for suspected conditions (not mental disorders or infectious disease) (8 sources)Encounter for screening for malignant neoplasm of colon; 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: [Patient encounter status]Onset: 28-21-9315XzrnbbevKgbya skin disorders (12 sources)Acne; 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: [Acne, unspecified]Onset: EpisodicUnclassified (1 source)PERSONAL HISTORY OF COVID-19; 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: [PERSONAL HISTORY OF COVID-19]Onset: 16-78-5054Sehffomtgutf (2 sources)CONTACT W/AND (SUSP) EXPOS COVID-19; 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: [CONTACT W/AND (SUSP) EXPOS COVID-19]Onset: 22-06-7705Tpoal infection (1 source)COVID-19; 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: [COVID-19]Onset: 09-26-2021 Past or Other Problems Problem ClassificationProblemDateDocumented DateEpisodic/ChronicDisorders of lipid metabolism (15 sources)Hyperlipidemia, unspecified; 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: [Hyperlipidemia]Onset: 09-14-2022 Resolved: 63-56-3305ExgzghpZyllu aftercare (1 source)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; 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: [SENIOR CARE CURRENT USE OF ASPIRIN]Onset: 32-40-5114YnvzsvkeKwnnd connective tissue disease (10 sources)Pain in toe; 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: [Pain in right toe(s)]Onset: 12-23-2023 44-99-4988PlghhderFcto and subcutaneous tissue infections (10 sources)Cellulitis of toe of right foot; 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: [Cellulitis of right toe]Onset: 665233-15-3717XwjmedsbBffgpjbzwrud (1 source)CONTACT W/AND (SUSP) EXPOS COVID-19; 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: [CONTACT W/AND (SUSP) EXPOS COVID-19]Onset: 09-21-2021 Results Test NameValueInterpretationReference RangeFacilityALL C REACTIVE PROTEINon 01-90-3845QSE [Mass/Vol]mg/LNINF - 0.50 mg/dLNOMS HealthcareALL URIC ACIDon 44-51-8551Fjiva [Mass/Vol]2.7 mg/dL2.6 - 6.0 mg/dLNOSC HealthcareNo Panel Informationon 28-45-5883RWTSJFQYIIZNX HealthcareLIPID PROFILEon 74-64-0261QMLY- HDL RATIO NORMSEE [facility] on above:Result Comment: 3.3 - 4.4 LOW RISK 4.4 - 7.1 AVERAGE RISK 7.1 - 11.0 MODERATE RISK >11.0 HIGH RISKPerformed By: #### LIPID #### [facility] [address] [address] [address] Cami QuispeCholesterol [Mass/Vol]229 mg/dLCritically high<=200[facility] on above:Performed By: #### LIPID #### [facility] [address] [address] [address] Cami QuispeCholesterol in HDL [Mass/Vol]60 mg/xSFtxiyw20-22MsiOur Lady of Mer[facility] on above:Performed By: #### LIPID #### [facility] [address] [address] [address] Cami QuispeCholesterol in LDL [Mass/Vol]160.2 mg/dLRegency Hospital Cleveland West on above:Performed By: #### LIPID #### [facility] [address] [address] [address] Cami QuispeCholesterdana.total/Cholesterol in HDL [Mass ratio]3.8 {ratio} NormalOur Lady of [facility] on above:Performed By: #### LIPID #### [facility] [address] [address] [address] Cami QuispeHDL NORMAL> or = 60 mg/dl - LOW CARDIOVASCULAR RISK <40 mg/dl - HIGH CARDIOVASCULAR RISKRegency Hospital [facility] on above:Performed By: #### LIPID #### [facility] [address] [address] [address] Cami QuispeLDL CALC NORMALSEE [facility]Com[facility] on above:Result Comment: <100 mg/dl OPTIMAL 100 - 129 mg/dl NEAR OR ABOVE OPTIMAL 130 - 159 mg/dl BORDERLINE HIGH 160 - 189 mg/dl HIGH >190 mg/dl VERY HIGH Performed By: #### LIPID #### [facility] [address] [place] [address] Dr. Cami QuispeTriglyceride [Mass/Vol]44 mg/dLNormal<=150[facility] Comment on above:Performed By: #### LIPID #### [facility] [address] [place] [address] Dr. Cami QuispeVLDL CALC8.8 mg/dLNormalThe [facility] CenterComment on above: Performed By: #### LIPID #### [facility] [address] [place] [address] Dr. Cami Soto AUTO DIFFon 27-27-2812BJEQ #0.0 103/ulNormal0.0-0.1[facility] HospitalComment on above:Performed By: #### CBC #### [facility] [address] [place] [address] Dr. Cami QuispeBasophils/100 WBC (Bld)0.6 %Normal0.2-2.0[facility] Comment on above:Performed By: #### CBC #### [facility] [address] [place] [address] Dr. Cami Headley #0.2 103/ulNormal0.0-0.7ThLakeHealth TriPoint Medical CenterComment on above: Performed By: #### CBC #### [facility] [address] [place] [address] Dr. Cami Coradoosinophils/100 WBC (Bld)3.2 %Normal0.9-7.0[facility] Comment on above:Performed By: #### CBC #### [facility] [address] [place] [address] Dr. Cami Coradorythrocyte distribution width (RBC) [Ratio]13.4 %Glbtuu71.0-15.0 [facility] HospitalComment on above:Performed By: #### CBC #### [facility] [address] [place] [address] Dr. Cami QuispeHematocrit (Bld) [Volume fraction]47.9 %Tyjnpq56.0-48.0The [facility] CenterComment on above:Performed By: #### CBC #### [facility] [address] [place] [address] Dr. Cami QuispeHemoglobin (Bld) [Mass/Vol]15.8 g/pEDeatoz18.0-16.0The [facility] CenterComment on above:Performed By: #### CBC #### [facility] [address] [place] [address] Dr. Cami QuispeIG #0.01 10e3/ulNormal0.00-0.03The [facility] CenterComment on above:Performed By: #### CBC #### [facility] [address] [place] [address] Dr. Cami QuispeIG %0.2 %Normal0.0-0.5The [facility] CenterComment on above: Performed By: #### CBC #### [facility] [address] [place] [address] Dr. Cami Connor #1.8 103/ulNormal1.2-3.8The [facility] CenterComment on above:Performed By: #### CBC #### [facility] [address] [place] [address] Dr. Cami Smithmphocytes/100 WBC (Bld)29.6 %Vvmfjc51.5-60.0The [facility] CenterComment on above:Performed By: #### CBC #### [facility] [address] [place] [address] Dr. Cami QuispeMANUAL DIFF REQNONormalThe [facility] CenterComment on above: Performed By: #### CBC #### [facility] [address] [place] [address] Dr. Cami Dugan (RBC) [Entitic mass]30.8 vqCpmcxa37.7-34.0The [facility] CenterComment on above:Performed By: #### CBC #### [facility] [address] [place] [address] Dr. Cami HutchinsHC (RBC) [Mass/Vol]33.0 g/wMKbhpjq92.9-35.2The [facility] CenterComment on above:Performed By: #### CBC #### [facility] [address] [place] [address] Dr. Cami HutchinsV (RBC) [Entitic vol]93.4 gQGjfuzx95.0-99.0The [facility] CenterComment on above:Performed By: #### CBC #### [facility] [address] [place] [address] Dr. Cami Weaver #0.5 103/ulNormal0.3-0.8The [facility] CenterComment on above:Performed By: #### CBC #### [facility] [address] [place] [address] Dr. Cami Robledoocytes/100 WBC (Bld)7.4 %Normal1.7-12.0The [facility] Comment on above:Performed By: #### CBC #### [facility] [address] [place] [address] Dr. Cami Dumont #3.7 103/ulNormal1.4-6.5The [facility] CenterComment on above:Performed By: #### CBC #### [facility] [address] [place] [address] Dr. Cami Watsonutrophils/100 WBC (Bld)59.0 %Jcwbpy92.0-75.0The [facility] CenterComment on above:Performed By: #### CBC #### [facility] [address] [place] [address] Dr. Cami Reillylet mean volume (Bld) [Entitic vol]9.6 fLNormal9.5-13.5The [facility] CenterComment on above:Performed By: #### CBC #### [facility] [address] [place] [address] Dr. Cami QuispePLT294 103/tpEatmol786-613Mov [facility] CenterComment on above: Performed By: #### CBC #### [facility] [address] [address] [address] Cami QuispeRBC5.13 106/ulNormal4.20-5.40The [facility] on above:Performed By: #### CBC #### [facility] [address] [address] [address] Cami QuispeWBC6.2 103/ulNormal4.0-11.0The [facility] on above: Performed By: #### CBC #### [facility] [address] [place] [address] Dr. Cami QuispeGLYCOHEMOGLOBIN A1Con 14-65-6374WIO RECOMMENDATIONSEE [facility] CenterCom[facility] on above:Result Comment: ADA RECOMMENDED LIMIT 4.0 - 6.0 ADA THERAPEUTIC TARGET < 7.0 ACTION SUGGESTED > 7.0Performed By: #### A1C #### [facility] [address] [place] [address] Dr. Cami QuispeGlucose [Mass/Vol]91 mg/dLNoWyandot Memorial Hospital on above:Performed By: #### A1C #### [facility] [address] [place] [address] Dr. Cami QuispeHbA1c (Bld) [Mass fraction]4.8 %Normal4.5-6.2The [facility] on above:Performed By: #### A1C #### [facility] [address] [place] [address] Dr. Cami QuispeLIPID PROFILEon 20-26-8291GHQB-HDL RATIO NORMSEE [facility] on above:Result Comment: 3.3 - 4.4 LOW RISK 4.4 - 7.1 AVERAGE RISK 7.1 - 11.0 MODERATE RISK >11.0 HIGH RISKPerformed By: #### LIPID, CMP, TSH #### [facility] [address] [place] [address] Dr. Cami QuispeCholesterol [Mass/Vol]255 mg/dLCritically high<=200The [facility] on above:Performed By: #### LIPID, CMP, TSH #### [facility] [address] [address] [address] Cami Hendricksesterol in HDL [Mass/Vol]68 mg/dLCritically pupo93-07Ptz [facility] on above:Performed By: #### LIPID, CMP, TSH #### [facility] [address] [address] [address] Cami Hendricksesterol in LDL [Mass/Vol]176.8 mg/dLNoPike Community HospitalComment on above:Performed By: #### LIPID, CMP, TSH #### [facility] [address] [address] [address] Cami Hendricksesterdana.total/Cholesterol in HDL [Mass ratio]3.8 {ratio} NormalThe [facility] CenterComment on above:Performed By: #### LIPID, CMP, TSH #### [facility] [address] [address] [address] Cami Corona NORMAL> or = 60 mg/dl - LOW CARDIOVASCULAR RISK <40 mg/dl - HIGH CARDIOVASCULAR RISKNoPike Community HospitalComment on above:Performed By: #### LIPID, CMP, TSH #### [facility] [address] [address] [address] Cami Deluna CALC NORMALSEE [facility] HospitalComment on above:Result Comment: <100 mg/dl OPTIMAL 100 - 129 mg/dl NEAR OR ABOVE OPTIMAL 130 - 159 mg/dl BORDERLINE HIGH 160 - 189 mg/dl HIGH >190 mg/dl VERY HIGH Performed By: #### LIPID, CMP, TSH #### [facility] [address] [address] [address] Cami QuispeTriglyceride [Mass/Vol]51 mg/dLNormal<=150[facility] Comment on above:Performed By: #### LIPID, CMP, TSH #### [facility] [address] [address] [address] Cami QuispeVLDL CALC10.2 mg/dLNoPike Community HospitalComment on above: Performed By: #### LIPID, CMP, TSH #### [facility] [address] [address] [address] Cami Valladares 14(COMP METB)on 40-57-3792Ijapwwh [Mass/Vol]4.3 g/dLNormal 3.4-5.0The [facility] CenterComment on above:Performed By: #### LIPID, CMP, TSH #### [facility] [address] [address] [address] Cami QuispeAlbumin/Globulin [Mass ratio]1.2 {ratio}NormalThe [facility] CenterComment on above:Performed By: #### LIPID, CMP, TSH #### [facility] [address] [address] [address] Cami Condon [Catalytic activity/Vol]74 U/VOjjplp94-861Cbj [facility] CenterComment on above:Performed By: #### LIPID, CMP, TSH #### [facility] [address] [address] [address] Cami Myers [Catalytic activity/Vol]28 U/VRpfhvl44-12Seu [facility] CenterComment on above:Performed By: #### LIPID, CMP, TSH #### [facility] [address] [address] [address] Cami Troncoso gap [Moles/Vol]11.8 mmol/LNormalThe [facility] Comment on above:Performed By: #### LIPID, CMP, TSH #### [facility] [address] [address] [address] Cami QuispeAST [Catalytic activity/Vol]16 U/SRcyaue07-43Ixp [facility] CenterComment on above:Performed By: #### LIPID, CMP, TSH #### [facility] [address] [address] [address] Cami QuispeBilirubin [Mass/Vol]1.0 mg/dLNormal0.2-1.0The [facility] Comment on above:Performed By: #### LIPID, CMP, TSH #### [facility] [address] [address] [address] Cami QuispeCalcium [Mass/Vol]9.2 mg/dLNormal8.5-10.1The [facility] Comment on above:Performed By: #### LIPID, CMP, TSH #### [facility] [address] [address] [address] Cami QuispeChloride [Moles/Vol]102 mmol/BWlnaqk43-488Njh [facility] Comment on above:Performed By: #### LIPID, CMP, TSH #### [facility] [address] [address] [address] Cami QuispeCO2 [Moles/Vol]26.4 mmol/EEopxpl73.0-32.0The [facility] Comment on above:Performed By: #### LIPID, CMP, TSH #### [facility] [address] [place] [address] Dr. Cami QuispeCreatinine [Mass/Vol]0.77 mg/dLNormal0.55-1.02[facility] HospitalComment on above:Performed By: #### LIPID, CMP, TSH #### [facility] [address] [place] [address] Dr. Cami CoradoGFR-AF FINNISH>60Normal>=60The [facility] CenterComment on above:Performed By: #### LIPID, CMP, TSH #### [facility] [address] [place] [address] Dr. Cami CoradoGFR-NON AF FINNISH>60Normal>=60The [facility] CenterComment on above:Performed By: #### LIPID, CMP, TSH #### [facility] [address] [place] [address] Dr. Cami QuispeGlobulin (S) [Mass/Vol]3.7 g/dLNormalThe [facility] CenterComment on above:Performed By: #### LIPID, CMP, TSH #### [facility] [address] [place] [address] Dr. Cami QuispeGlucose [Mass/Vol]92 mg/vPMazayf85-948CtoAultman Alliance Community Hospital Comment on above:Performed By: #### LIPID, CMP, TSH #### [facility] [address] [place] [address] Dr. Cami QuispePotassium [Moles/Vol]4.2 mmol/LNormal3.5-5.1[facility] Comment on above:Performed By: #### LIPID, CMP, TSH #### [facility] [address] [place] [address] Dr. Cami QuispeProtein [Mass/Vol]8.0 g/dLNormal6.4-8.2The [facility] Comment on above:Performed By: #### LIPID, CMP, TSH #### [facility] [facility] [address] [place] [address] Dr. Cami QuispeSodium [Moles/Vol]136 mmol/TCfzzsh538-742Vej [facility] Comment on above:Performed By: #### LIPID, CMP, TSH #### [facility] [address] [place] [address] Dr. Cami QuispeUrea nitrogen [Mass/Vol]14.0 mg/dLNormal7.0-18.0The [facility] CenterComment on above:Performed By: #### LIPID, CMP, TSH #### [facility] [address] [place] [address] Dr. Cami Aranda nitrogen/Creatinine [Mass ratio]18.2 mg/mgNoPike Community HospitalComment on above:Performed By: #### LIPID, CMP, TSH #### [facility] [address] [place] [address] Dr. Cami Portillo 75-23-1038TJG6.255 uIU/mLNormal0.358-3.740[facility] Community HospitalComment on above:Performed By: #### LIPID, CMP, TSH #### [facility] [address] [place] [address] Dr. Cami CASTRO BELOWWVUMedicine Harrison Community HospitalComment on above: Result Comment: <0.34 UIU/ml HYPERTHYROID 0.34-5.60 UIU/ml EUTHYROID >5.60 UIU/ml HYPOTHYROIDPerformed By: #### LIPID, CMP, TSH #### [facility] [address] [place] [address] Dr. Cami Aguayo 37-46-9466Bstgowh Colonoscopy [id number]#1.00CD:127NormalLouis Stokes Cleveland Va Medical CenterReminderson 89-74-3479Rwognonoh From: Cindi Figueroa LPN To: N - Clinical; Sent: 11/02/2021 14:42:12 EST Show up: 10/02/2031 08:00:00 EST Subject: colonoscopy recall Due Date/Time: 11/01/2031 08:00:00 EST Reminder/Recall Patient is due for screening colonoscopy 11/01/2031.NormalLouis Stokes Cleveland Va Medical CenterPREG HCG QUALon 76-22-1041JKMGRMRTW, QUALNegativeNormalNEGATIVEThe [facility] CenterComment on above:Performed By: #### PREG #### [facility] [address] [place] [address] Dr. Cami Acosta-19 PCR (CVDTBH)on 11-86-5482ZNJR-CoV-2 (COVID-19) RNA LOAN+probe Ql (Unsp spec)DetectedCritically abnormalNOT DETECTEDThe [facility] CenterComment on above:Result Comment: This test is not yet approved or cleared by the [place] FDA. When there are no FDA-approved or cleared tests available, and other criteria are met, FDA can make tests available under an emergency access mechanism called an Emergency Use Authorization (EUA). The EUA for this test is supported by the Supervisor Home Energy Consultant of Health and Human Service's declaration that circumstances exist to justify the emergency use of in vitro diagnostics for the detection and/or diagnosis of the virusthat causes COVID-19. This EUA will remain in effect for the duration of the COVID-19 declaration ju stifying emergency of IVDs, unless it is terminated or revoked by the FDA (after which the test mayno longer be used).Performed By: #### CVDTBH #### [facility] [address] [place] [address] Dr. Cami QuispeProvider Letter [facility] CITYon 90-53-1671Uyoacmaw Letter FTCarl [facility] [address], [address] [place] [address] Re: JOAQUINA GARCIA Date of : 1970 Thank you for your referral of Joaquina Garcia who was seen on consultation for screening colonoscopy. I have enclosed my consultation note for your review. I will be happy to follow Joaquina. Sincerely, Joo Gonzalez MD General SurgeryOhio Valley HospitalConsent for Procedure/Surgeryon 61-88-6091Ththdgf for Procedure/Surgery [id number]#1.00CD:[address] [place], [place] [address]Physician Referralon 97-83-6444Jsslbcubp Referral [id number]#1.00CD:[address] [place] [address] Vital Signs Date TimeVital SignValuePerforming YsseujfyyRmhdzytw41-86-1270 15:25-0400Body .18 cmEverette Mullen MD Work Phone: [facility]09-23-2025 15:25-0400 Body mass index (BMI) [Ratio]38.2 kg/m2Everette Mullen MD Work Phone: [facility]09-23-2025 15:25-0400 Body kdggiekaikb60.8 [degF]Everette Mullen MD Work Phone: [facility]09-23-2025 15:25-0400 Body ixlaux102.73 kgEverette Mullen MD Work Phone: [facility]09-23-2025 15:25-0400 Diastolic blood deahwqkt48 mm[Hg]Everette Mullen MD Work Phone: [phone]-[facility]09-23-2025 15:25-0400 Heart ximc914 /minEverette Mullen MD Work Phone: [facility]09-23-2025 15:25-0400 Respiratory rate18 /minEverette Mullen MD Work Phone: [facility]09-23-2025 15:25-0400 SaO2% (BldA) [Mass fraction]98 %Everette Mullen MD Work Phone: [facility]09-23-2025 15:25-0400 Systolic blood lsverwrr471 mm[Hg]Everette Mullen MD Work Phone: [facility]02-15-2024 15:20-0500 Body mass index (BMI) [Ratio]33.15 kg/m2Ekaterina PATTERSON Work Phone: [facility] NorthLpmqkgnadg67-94-0374 15:20-0500Body nwdijg38.88 kgEkaterina PATTERSON Work Phone: [facility] NorthOrsjtuktqz28-05-1839 15:20-0500Diastolic blood mfendcju41 mm[Hg]Ekaterina PATTERSON Work Phone: [facility] NorthFvuiraukul97-59-8057 15:20-0500Systolic blood mwmbtvyk514 mm[Hg]Ekaterina PATTERSON Work Phone: [facility] Encounters Encounter DateEncounter TypeCare ProviderFacilityStart: 08-03-2025 End: 29-10-0679ktkurnalxrJlqs Naderer MD Work Phone: [facility] Work Phone: Start: 08-03-2025 End: 12-63-6959Alhehwn encounter procedureCrystal Rosas NP-C-[facility] Work Phone: Start: 08-03-2025 End: 52-23-5572Ptkmzox encounter statusCrystal Rosas NP-[facility]tart: 55-94-9890Hgphyko encounter statusEverette Mullen MD Work Phone: [facility] Hospitaltart: 06-21-2025 End: 05-82-7467Rysdjpdco encounterLisa Aichholz TOLL TRANSMISSION WORKER Work Phone: NOZ[facility] CWM FMStart: 06-18-2025 End: 00-93-4131UrqkzkPnha Aichholz TOLL TRANSMISSION WORKER Work Phone: [facility] CWM FMComment on above:Arthralgia, unspecified joint; Chronic migraine without aura without status migrainosus, not intractableStart: 03-21-2025 End: 04-39-2604IflbocEbji Alison TOLL TRANSMISSION WORKER Work Phone: [facility] CWM FMComment on above:Chronic migraine without aura without status migrainosus, not intractable (CMS/HCC); Arthralgia, unspecified jointStart: 02-26-2025 End: 53-46-1541ZtfbkuWoyv Aichholz TOLL TRANSMISSION WORKER Work Phone: [facility] CWM FMComment on above:Chronic migraine without aura without status migrainosus, not intractable (CMS/HCC) (Primary Dx)Start: 02-25-2025 End: 77-32-5756XfbgvgZzlw Alison TOLL TRANSMISSION WORKER Work Phone: [facility] CWM FMStart: 02-12-2025 End: 98-85-4704Vhenuncin encounterLisa Alison TOLL TRANSMISSION WORKER Work Phone: [facility]OP[facility] CWM FMStart: 01-13-2024 End: 66-92-0893mpxqoluvaqKVRV JOSEFINAHOLZNot AvailableStart: 12-26-2023 End: 85-93-9535bkmqpucotkTNG Felipe AvailableStart: 12-26-2023 End: 27-53-9857Xspfrlc encounter procedureAmy Jean PATTERSON Work Phone: [facility] Work Phone: Start: 12-26-2023 End: 78-85-4715Bwtqeuxn preventive med est patient 40-64yrsAmy Jean PATTERSON Work Phone: [facility] BCP OBComment on above:Well woman exam with routine gynecological exam; Breast cancer screening by mammogram; Post menopausal syndrome; Age-related osteoporosis without current pathological fracture (CMS/HCC); AmenorrheaStart: 71-05-0164Miwpeccyf Result EncounterLisa Aichholz TOLL TRANSMISSION WORKER Work Phone: n[facility] External Department UnsolicitedStart: 12-26-2023 Clinisync Result EncounterLisa Aichholz TOLL TRANSMISSION WORKER Work Phone: n[facility] External Department UnsolicitedStart: 12-25-2023 Chart abstractingEkaterina PATTERSON Work Phone: [facility] BCP OBStart: 25-22-4313Corwgq flowsheetLisa Aichholz TOLL TRANSMISSION WORKER Work Phone: [facility] CWM FMStart: 72-36-3938Nkdoio flowsheetLisa Aichholz TOLL TRANSMISSION WORKER Work Phone: [facility] CWM FMStart: 12-23-2023 End: 51-80-6341ydzuhonpfmOIXF AICHHOLZNot AvailableStart: 11-21-2023 End: 54-98-3394ulxhpdcoxiNPVT AICHHOLZNot AvailableStart: 09-14-2022 End: 60-05-7216tntkmkdjumSGL CRYSTAL MICHELLEZFacility:R2Sglwi: 37-01-4759Iwjpmftfl for general adult medical examination without abnormal findingsCNP CRYSTAL AICHHOLZ [facility] HospitalStart: 04-05-2022 End: 21-52-9973yvwjaukfvoTPH CRYSTAL YAKELINHPHILZFacility:D1Lyifv: 04-05-2022 End: 25-60-1028Zrfdtrcit for general adult medical examination without abnormal findingsCNP CRYSTAL ALISONFacility:K0Efswq: 11-01-2021 End: 22-64-8562domqyjfmnbEJ JOO NILLFacility:K1Zbwsf: 53-55-7985nmhzsfdpyvOX JOO NILLFacility:U4Bgumw: 09-21-2021 End: 93-82-4319jaokyuwgkgSB AMY RAMEYFacility:H1 Procedures DateProcedureProcedure DetailPerforming ClinicianStart: 70-71-9091HYW C REACTIVE PROTEINLisa Aichholz TOLL TRANSMISSION WORKER Work Phone: Start: 36-95-6027XPB URIC ACIDCrystal Rosas TOLL TRANSMISSION WORKER Work Phone: Start: 83-72-4155Udbkoeoxzrm observation [Identifier] in Cervix by Cyto stainCrystal Rosas TOLL TRANSMISSION WORKER Work Phone: Start: 66-16-8058AptospqhhjyUewe Aichholz TOLL TRANSMISSION WORKER Work Phone: Start: 82-22-1905RtyguputxmgVuuz Aichholz TOLL TRANSMISSION WORKER Work Phone: Plan of Treatment DateCare ActivityDetailAuthorStart: 76-73-1859Vnwebixbu for malignant neoplasm of colonNOMS HealthcareStart: 50-23-1383Dzzuwexwk for malignant neoplasm of cervixNOMS HealthcareStart: 50-73-1741Nvaokoaqj for malignant neoplasm of cervix Pap SmearNOMS HealthcareStart: 56-03-1754Waztxclxd vaccinationNOMS Healthcare Start: 04-08-2025 End: 30-15-9151Bpfjbzm encounter bgwahhtoe12/29/2025 3:00 PM EDT Office Visit [facility] [address] [place] [address] Crystal Rosas NP [address] [place] [address] [facility] MELISSA FMStart: 90-43-4233Vztdpdilp for malignant neoplasm of cervixNOMS HealthcareStart: 22-93-8514Weiabcpgm for malignant neoplasm of breastMammogramNOMS HealthcareStart: 01-13-2024 End: 93-31-7189Ogjghdx encounter ytcrwbygy69/04/2024 1:00 PM EST Office Visit [facility] [address] [place] [address] Crystal Rosas NP [address] [place] [address] [facility] BISHNU FMStart: 01-02-2024 End: 43-56-2025Hecghie encounter grlvftses26/22/2024 8:50 AM EST Office Visit [facility] [address] [place] [phone] Ekaterina Durán PA [address] [place], [place] [address] [facility] BCP OBStart: 12-26-2023 End: 32-61-7919Dwyfywz encounter ojzijwdzc98/15/2024 3:00 PM EST Office Visit [facility] [address] [place] [address] Ekaterina Durán PA [address] [place], [place] [address] Well woman exam with routine gynecological examNOMS BCP OB Comment on above:Well woman exam with routine gynecological examStart: 12-26-2023 End: 73-23-1979OXC Skeletal system Views for bone densityDEXA bone density Imaging Routine Post menopausal syndrome Age-related osteoporosis without currentpathological fracture ([facility]) Expected: 12/26/2023 (Approximate), Expires: 12/26/2024[facility] HealthcareComment on above:Expected: 12/26/2023 (Approximate), Expires: 12/26/2024Start: 12-26-2023 End: 83-36-3572NX Breast - bilateral ScreeningBilateral screening mammogram Imaging Routine Breast cancer screening by mammogram Expected: 12/26/2023, Expires: 02/23/2025[facility] Work Phone: comment on above:Expected: 12/26/2023, Expires: 02/23/2025Start: 12-26-2023 End: 51-26-6469EK for pregnancyUS PELVIS-TRANSVAG IF INDICATED Imaging Routine Amenorrhea Expected: 12/26/2023 (Approximate), Expires: 12/26/2024[facility] HealthcareComment on above:Expected: 12/26/2023 (Approximate), Expires: 12/26/2024Start: 90-02-3373Lldfyjpkm for malignant neoplasm of cervixPap Smear [facility] HealthcareStart: 61-22-2487Mowcphjsu for malignant neoplasm of colonNOSC HealthcareCBC W Auto Differential panel - BloodCBC and differential Lab Routine Amenorrhea Ordered: 12/26/2023[facility] HealthcareComment on above:Ordered: 12/26/2023omprehensive metabolic 2000 panel - Serum or PlasmaSelect [facility], InchCG, quantitative, pregnancyhCG, quantitative, Lab Routine Amenorrhea Ordered: 12/26/2023[facility] HealthcareComment on above:Ordered: 12/26/2023Hemoglobin A1c/Hemoglobin.total in BloodHemoglobin A1c Lab Routine Amenorrhea Ordered: 12/26/2023[facility] HealthcareComment on above:Ordered: 12/26/2023MG Breast - bilateral ScreeningSelect [facility]ty [facility], Inc ProlactinProlactin Lab Routine Amenorrhea Ordered: 12/26/2023[facility] Healthcare Comment on above:Ordered: 12/26/2023THIN PREP TIS PAP AND HR HPV DNATHIN PREP TIS PAP AND HR HPV DNA Pathology and Cytology Routine Well woman exam with routine gynecological exam Ordered: 12/26/2023[facility] HealthcareComment on above: Ordered: 12/26/2023Thyrotropin [Units/volume] in Serum or PlasmaTSH Lab Routine Amenorrhea Ordered: 12/26/2023[facility] HealthcareComment on above:Ordered: 12/26/2023[facility] Immunizations Immunization DateImmunizationNotesCare ZtwtbtdbMyisazre16-31-9711Vbltmrim, trivalent, recombinant, injectable influenza vaccine, preservative freeLisa Aichholz TOLL TRANSMISSION WORKER Work Phone: [facility] NorthCwnremxips81-37-9950ciqxqdrkf virus vaccine, unspecified formulationLisa Aichholz TOLL TRANSMISSION WORKER Work Phone: [facility] NorthNsvdjpaogy74-47-8499vrczvljzb virus vaccine, whole virusLisa Aichholz TOLL TRANSMISSION WORKER Work Phone: [facility] NorthGzozupeaab79-03-6167pbnncxhck virus vaccine, unspecified formulationLisa Aichholz TOLL TRANSMISSION WORKER Work Phone: [facility] NorthNswivtbtaa40-31-4316avisswbtz, injectable, quadrivalent, preservative freeLisa Aichholz TOLL TRANSMISSION WORKER Work Phone: [facility] Payers DatePayer CategoryPayerPolicy [id number] ClinicBCBS [id number] BCBS [id number] 2022-Present [id number] [place], [place] [id number] [id number] 2..1.276622.3.57[id number] 2..1.043145.3.579.2.15978-98-4066Trrmzaw1940187 2..1.600989.3.579.2.47802-99-6473Evxjuyj3024698 2..1.764681.3.579.[id number] 2..1.797486.3.579.2.61227-50-2214Eliyljs2747348 2..1.515474.3.579.2.735090-78-7083Xzrlalb0894852 2..840.1.815882.3.579.2.875371-86-7229Hkmhfut7734331 2.16.840.1.209901.3.579.[id number] 2.16.840.1.939648.3.579.2.1259 Social History DateTypeDetailFacilityStart: 81-22-8377Olpykeq smoking status NHISNever smoked tobaccoNOMS HealthcareStart: 12-23-2023 End: 61-36-6576Eegoryh intakeCurrent drinker of alcohol (finding)[facility] Start: 11-18-2023 End: 31-30-6715Jrzkvgx of Social functionNOMS HealthcareStart: 11-18-2023 End: 07-99-1804Ctyjzysixyh, Afraid, Rape, and Kick questionnaire [HARK][facility] HealthcareWithin the last year, have you been afraid of your partner or ex-partner?NoNOMS HealthcareHow often do you attend sabianist or rastafarian services?Patient refusedNOMS HealthcareAre you now , , , , never or living with a partner?MarriedNOMS HealthcareHow often to you have a drink containing alcohol?2-3 time sa weekNOMS HealthcareHow many standard drinks containing alcohol do you have on a typical day?1 or 2NOMS HealthcareHow often do you have 6 or more drinks on 1 occasion?NeverNOMS HealthcareDo you feel stress - tense, restless, nervous, or anxious, or unable to sleep at night because yourmind is troubled all the time - these days [OSQ] Only a littleNOMS Healthcare(I/We) worried whether (my/our) food would run out before (I/we) got money to buy more.Never trueNOMS HealthcareStart: 11-19-2023 Alcohol Comment1-2 drinks monthly or lessNOMS HealthcareStart: 80-25-6329Gxq Assigned At BirthNot on fileNOMS HealthcareHow many standard drinks containing alcohol do you have on a typical day?3 or 4NOMS HealthcareHow hard is it for you to pay for the very basics like food, housing, medical care, and heatingNot [facility] smoking status NHISUnknown if ever smoked [facility] Work Phone: SexFemale (finding)[facility] Start: 03-75-7878Ann Assigned At [facility] Clinical Notes 09-08-2021 to 06-21-2025 Note Date & IcqfXwzeDyvjetcl23-99-6740 Telephone encounter Note* Telephone Encounter - Crystal Rosas NP - 06/21/2025 1:02 PM EDT Please call pt, she is not been seen in office in over a year Please get an appt scheduled an appt [place] [facility] NorthHyewyeydkd72-58-7370 Miscellaneous Notes* Telephone Encounter - Crystal Rosas NP - 06/21/2025 1:02 PM EDT Please call pt, she is not been seen in office in over a year Please get an appt scheduled an appt [place] documented in this [facility]04-04-2025 Telephone encounter Note* Telephone Encounter - Crystal Rosas NP - 02/12/2025 10:04 AM EDT Needs fu appt scheduled, not seen in over a year [place] [facility] NorthCppaowzbzh59-12-7538 Miscellaneous Notes* Telephone Encounter - Crystal Rosas NP - 02/12/2025 10:04 AM EDT Needs fu appt scheduled, not seen in over a year [place] documented in this [facility]02-15-2024 History of Present illness Narrative* LEONARDO Garcia - 12/26/2023 3:00 PM EST Reason for Appointment: Patient ID: Bev Garcia 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, not intractable ([facility]/HCC) 10/21/2023 BMI 33.0-33.9,adult 11/21/2023 Pain and swelling of toe of right foot 12/23/2023 Cellulitis of toe of right foot 12/23/2023 Resolved Ambulatory Problems Diagnosis Date Noted Hyperlipidemia ([facility]) 12/23/2023 Past Medical History: Diagnosis Date Joint pain Migraine headache ([facility]) Family History Problem Relation Name Age [...] nursing note reviewed. Exam conducted with a sanitation technician present. Patient presents today for an annual exam. Patient states she is doing well and has no complaints. Pap was obtained without difficulty and patient given mammogram/Dexa order to have scheduled/obtained. Amenorrhea labs/US was given to pt to have done and to schedule back in 4 weeks for a televisit appt bo/fan to review. Follow Up: Patient is to [...] syndrome Age-related osteoporosis without current pathological fracture (CMS/HCC) Patient presents today for an annual exam. [...] up via telehealth once lab work and UScompleted. Follow Up: Patient is to return in one year for annual unless needed otherwise. Documented by Manujla Arthur MA on behalf of: LEONARDO Garcia * Manjula Arthur MA - 12/26/2023 3:00 PM EST Reason for Appointment: Patient ID: Bev Garcia 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, not intractable ([facility]/HCC) 10/21/2023 BMI 33.0-33.9,adult 11/21/2023 Pain and swelling of toe of right foot 12/23/2023 Cellulitis of toe of right foot 12/23/2023 Resolved Ambulatory Problems Diagnosis Date Noted Hyperlipidemia ([facility]) 12/23/2023 Past Medical History: Diagnosis Date Joint pain Migraine headache ([facility]) Family History Problem Relation Name Age [...] calculated from the following: Height as of 24: 5' 8 . Weight as of this encounter: 218 lb. BP: 122/74 No LMP recorded. Patient is postmenopausal. Assessment/Plan Encounter Diagnoses Name Primary? Well woman exam with routine gynecological exam Breast cancer screening by mammogram Post menopausal syndrome Age-related osteoporosis without current pathological fracture ([facility]) Documented by Manjula Arthur MA on behalf of: LEONARDO Garcia documented in this encounterCox NorthXgaffdhhqg43-21-2895 NoteOPERATIVE NOTE OPERATION DATE: 11-01-21 ANESTHETIC:Monitored anesthesia care. [...] Recovery Room in good condition. cc:Crystal Rosas. [facility] Signed and Approved by: DR JOO GONZALEZ . 11/08/2021 08:02:00 [facility] Signed and Approved by: DR JOO GONZALEZ . 11/08/2021 08:02:00[facility]10-29-2021 NoteChief Complaint consultation for screening colonoscopy HPI Staff [...] swallowing difficulties, no hearing loss, no ear infection(s),no nose bleeds. Cardiovascular: normal blood pressure, no [...] colon: plan colonoscopy under anesthesia, informed consent obtained.[facility] Medical CenterComment on above:Result Comment: Electronically Signed By: SEAN BRADLEY, Joo Hyde\Date and Time Signed: 09/08/21 20:14 EDTEvaluation note* Diagnosis Well woman exam with routine gynecological exam Routine gynecological examination Breast cancer screening by mammogram Post menopausal syndrome Asymptomatic postmenopausal status (age-related) (natural) Age-related osteoporosis without current pathological fracture (CMS/HCC) Amenorrhea Absence of menstruation documented in this encounter [facility] HealthcareEvaluation note* Diagnosis Chronic migraine without aura without status migrainosus, not intractable (CMS/HCC)- Primary BMI 33.0-33.9,adult Adult acne Chronic migraine without aura without status migrainosus, not intractable (CMS/HCC)- Primary BMI 33.0-33.9,adult Pain and swelling of toe of right foot Cellulitis of toe of right foot Positive STUART (antinuclear antibody)- Primary Other and unspecified nonspecific immunological findings Cellulitis of toe of right foot BMI 33.0-33.9,adult Chronic migraine without aura without status migrainosus, not intractable (CMS/HCC)- Primary documented in this encounter [facility] HealthcareEvaluation note* Diagnosis Chronic migraine without aura without status migrainosus, not intractable (CMS/HCC)- Primary BMI 33.0-33.9,adult Adult acne Chronic migraine without aura without status migrainosus, not intractable (CMS/HCC)- Primary BMI 33.0-33.9,adult Pain and swelling of toe of right foot Cellulitis of toe of right foot Positive STUART (antinuclear antibody)- Primary Other and unspecified nonspecific immunological findings Cellulitis of toe of right foot BMI 33.0-33.9,adult Chronic migraine without aura without status migrainosus, not intractable (CMS/HCC) Arthralgia, unspecified joint documented in this encounter [facility] HealthcareEvaluation note* Diagnosis Chronic migraine without aura without status migrainosus, not intractable- Primary BMI 33.0-33.9,adult Adult acne Chronic migraine without aura without status migrainosus, not intractable- Primary BMI 33.0-33.9,adult Pain and swelling of toe of right foot Cellulitis of toe of right foot Positive STUART (antinuclear antibody)- Primary Other and unspecified nonspecific immunological findings Cellulitis of toe of right foot BMI 33.0-33.9,adult Arthralgia, unspecified joint Chronic migraine without aura without status migrainosus, not intractable documented in this encounter [facility] HealthcareEvaluation note* Diagnosis Onset Date Resolution Status Admit Date Breast cancer screening by mammogram acuteSept2024 2:58pmEncounter for wellness examinationacuteSept2024 2:58pmHeadache, chronic migraine without auraacuteSept2024 2:58pm [facility] Work Phone: Reason for referral (narrative)No reason for referral information availablePeoples Hospital Work Phone: Summary Purpose Family History No Family History Records FoundNo Family History Records FoundNo Family History Records Found Advance Directives Advance Directive Response Recorded Date/ Time Advance Directives No July 6:30am Chief Complaint and Reason for Visit Chief Complaint Admit Date f/u from cancelled appt. August 03, 2025 2:58pm Reason for Visit Admit Date Breast cancer screening by mammogram Sep tember 2024 2:58pm Encounter for wellness examination Septe [facility] 2024 2:58pm Headache, chronic migraine without aura August 03, 2025 2:58pm Additional Source Comments INFORMATION SOURCE (unrecogn ized section and content) DATE CREATED AUTHOR 11/09/2021 [facility] DATE CREATED AUTHOR AUTHOR'S ORGANIZ ATION 09/21/2022 [facility] DATE CREATED AUTHOR AUTHOR'S ORGANIZ ATION 01/14/2024 [facility] EPIC Care Teams (unrecognized sec tion and content) Team MemberRelationshipSpecialtyStart DateEnd Date Everette Mullen MD PCP - GeneralFamily Medicine05/07/23 Crystal Rosas NP [address] [place] [address] PCP - [place] [employer]11/11/23Team MemberRelationshipSpecialtyStart DateEnd Date Everette Mullen MD PCP - GeneralFamily Medicine05/07/23 Crystal Rosas NP [address] [place] [address] PCP - [place] [employer]11/11/23Team MemberRelationshipSpecialtyStart DateEnd Date Naderer, Everette, MD PCP - GeneralFamily Medicine05/07/23 Crystal Rosas NP [address] [place] [address] PCP - [place] [employer]11/11/23Team MemberRelationshipSpecialtyStart DateEnd Date Crystal Rosas NP [address] [place] [address] PCP - [place] Nzemqglgjw01/1/23 Everette Mullen MD [address] [place] [phone] PCP - Generalmily Medicine01/13/24 Crystal Rosas NP [address] [place] [address] Nurse [facility] Medicine01/13/24Team MemberRelationshipSpecialtyStart DateEnd Date Crystal Rosas NP [address] [place] [address] PCP - [place] Ybvfkzkfbg66/1/23 Everette Mullen MD [address] [place] [address] PCP - GeneralFamily Medicine01/13/24 Crystal Rosas NP [address] [place] [address] [facility]01/13/24Team MemberRelationshipSpecialtyStart DateEnd Date Crystal Rosas NP [address] [place] [address] PCP - [place] Rbkbaulrav10/1/23 Everette Mullen MD [address] [place] [address] [facility] - [facility]01/13/24 Crystal Rosas NP [address] [place] [address] [facility]01/13/24Team MemberRelationshipSpecialtyStart DateEnd Date Everette Mullen MD [address] [place] [address] [facility]CP [facility]01/13/24 Crystal Rosas NP [address] [place] [address] [facility]01/13/24Team MemberRelationshipSpecialtyStart DateEnd Date Everette Mullen MD [address] [place] [address] [facility] - [facility]01/13/24 Crystal Rosas NP [address] [place] [address] [facility]01/13/24Team MemberRelationshipSpecialtyStart DateEnd Date Everette Mullen MD [address] [place] [phone] PCP - [facility]01/13/24 Crystal Rosas NP [address] [place] [address] [facility]01/13/24 Team Status: Active Member Role Status Dates Everette Mullen MD Primary Care Provider Active Team Status: Inactive Member Role Status Dates Crystal Rosas NP-C Attending Provider Active Start: August 03, 2025 End: August 03, 2025Mar Delroy [facility] Care ProviderActiveStart: August 03, 2025 End: August 03, 2025 Reason for Visit (unrecogniz ed section and content) ReasonCommentsWell Women VisitReasonCommentsMed Refill Goals (unrecognized section and content) Goals may be documented in a n alternate section FOR RECORDS PERTAINING TO PATIENTS WHO ARE [...] BE BASED ON THE PRIMARY CLINICAL RECORDS. [facility] [employer] [facility]. provides no warranty or guarantee of the accuracy or completeness of information in this document.
--- NOTE | 2025-09-02 14:04 | MM_ITS ---
Patient Name: MARIBEL FLORES MR#: [id number] : 1970 Exam Date: 09/02/2025 Ordering Doctor: MARIANA PÉREZ CNP RADIOLOGY REPORT PROCEDURE: MM TOMOSYNTHESIS SCREENING BI COMPARISON: MM TOMOSYNTHESIS SCREENING BI, 06/13/2023. MG MAMM SCREEN 3D AZRA CAD, 03/30/2021. MG MAMM SCREEN AZRA W CAD, 07/29/2019. MG MAMM AZRA SCRN W CAD DIG, 03/11/2014. INDICATIONS: screening mammogram for malignant neoplasm Calculator Name [facility] Breast Cancer Risk Assessment Tool 5 Year Breast Cancer Risk 1.00% Lifetime Breast Cancer Risk 7.50% Personal Breast Cancer No Personal Ovarian Cancer No Treatments None Family Cancers Grandmother-paternal with uterine cancer at age ~82; Aunt-paternal with brain cancer at age ~30. LOCATION: [facility] BREAST COMPOSITION: The breasts are heterogeneously dense, which may obscure small masses. FINDINGS: RIGHT BREAST: No significant suspicious finding. LEFT BREAST: No significant suspicious finding. DIAGNOSTIC CATEGORY 1--NEGATIVE. RECOMMENDATIONS: ROUTINE MAMMOGRAM AND CLINICAL EVALUATION IN 12 MONTHS. Dictated by: Enrique Mccabe DO on 09/02/2025 at 15:14 Approved by: Enrique Mccabe DO on 09/02/2025 at 15:15
[2025-09-02 15:02] LABS: Hematocrit 41.4 % (36.0-48.0); Hemoglobin 13.9 g/dL (12.0-16.0); Immature Granulocytes Abs Auto 0.01 10^3/uL (0.00-0.03); Immature Granulocytes Pct Auto 0.2 % (0.0-0.5); Lymphocytes Absolute Auto 1.6 10^3/uL (1.2-3.8); Mean Corpuscular HGB Conc 33.6 g/dL (29.9-35.2); Mean Corpuscular Hemoglobin 30.5 pg (26.7-34.0); Mean Corpuscular Volume 91.0 fL (81.0-99.0); Platelet Count 249 10^3/uL (150-450); Red Blood Count 4.55 10^6/uL (4.20-5.40); White Blood Count 5.5 10^3/uL (4.0-11.0)
[2025-09-02 15:22] LABS: Alanine Aminotransferase 19 U/L (14-59); Albumin Globulin Ratio 1.1; Albumin Level 3.7 g/dL (3.4-5.0); Alkaline Phosphatase 94 U/L (46-116); Anion Gap 11.8; Aspartate Amino Transferase 12 U/L (15-37); Blood Urea Nitrogen 15.0 mg/dL (7.0-18.0); Calcium 8.9 mg/dL (8.5-10.1); Carbon Dioxide 28.1 mmol/L (21.0-32.0); Chloride 106 mmol/L (98-107); Cholesterol 252 mg/dL (<=200); Estimated GFR (African America >60 (>=60 mL/min/1.73m^2); Estimated GFR (Non-African Ame >60 (>=60 mL/min/1.73m^2); Globulin 3.5 g/dL; Glucose 95 mg/dL (74-106); HDL Cholesterol 73 mg/dL (40-60); Potassium 3.9 mmol/L (3.5-5.1); Sodium 142 mmol/L (136-145); Total Protein 7.2 g/dL (6.4-8.2); Triglycerides 55 mg/dL (<=150); VLDL CHOLESTEROL 11.0 mg/dL
== END 2025-09-02 13:55 | disposition home or self-care (01) ==
LOC: MAMMO 13:55
PROVIDERS: PCP Nurse Practitioner; Visit Provider Nurse Practitioner
DX: Z00.00 Encounter for general adult medical examination without abnormal findings (principal); Z12.31 Encounter for screening mammogram for malignant neoplasm of breast; Z80.8 Family history of malignant neoplasm of other organs or systems
CPT/HCPCS: 36415; 77063; 77067; 80053; 80061; 85025